=== PATIENT | male | born 1950 | race Caucasian/White ===

== ENCOUNTER 2019-08-02 13:00 | Outpatient (RCR) | payer MEDICARE, OTHER, SELFPAY | END 2019-08-02 23:00 | disposition home or self-care (01) | LOC: SPT 13:00 | PROVIDERS: Family Provider Family Medicine; PCP Family Medicine; Referring Provider Orthopaedic Surgery; Visit Provider Orthopaedic Surgery | DX: M25.512 Pain in left shoulder (principal); M54.10 Radiculopathy, site unspecified | CPT/HCPCS: 97163 ==

== ENCOUNTER 2019-08-16 13:32 | Emergency (ER) | payer MEDICARE, OTHER, SELFPAY ==
[2019-08-16 14:00] VITALS: BP 106/69; PULSE 71; RESP 16; TEMP 36.6; O2SAT 95; BMI 25.8
--- NOTE | 2019-08-16 14:06 | PC.NURSE ---
Patient seated in waiting room at this time. Will continue to monitor.
[2019-08-16 14:51] VITALS: BP 125/78; PULSE 58; RESP 16; TEMP 36.3; O2SAT 97
[2019-08-16] MEDS: fluorescein 1 mg Strip EYE-RIGHT (15:17)
[2019-08-16] MEDS: tetracaine 0.5% Op Soln 4 mL Btl 1 DROP EYE-RIGHT (15:17)
--- NOTE | 2019-08-16 15:26 | ED_ITS ---
HPI - General Adult General: Chief complaint: General Medical Stated complaint: bleach in nose? Time Seen by Provider: 08/16/19 14:50 Source: patient Mode of arrival: ambulatory Limitations: no limitations History of Present Illness: HPI narrative: 69-year-old male patient presents the emergency department saying about 3 to 4 hours ago he was using nasal solution and accidentally grabbed a bleach solution bottle. Patient states it did not smell of bleach but he was certain that there was bleach in the bottle. Patient said he irrigated his right nare as well as his right eye. Patient complains of burning and irritation to his right nares as well as his right eye. Patient denies any visual disturbances. Patient states he is not have any changes in his vision. Patient denies any fever. Patient denies any shortness of breath or difficulty breathing. Patient denies any other complaints at this Onset (ago): hour(s) (3-4) Location: eyes Severity: mild Quality: burning Pain Consistency: other (improving) Relieving factors: other (rrigation) Exacerbating factors: none Associated symptoms: Reports no associated symptoms; Deny chest pain, confusion, diaphoresis, dyspnea, fevers/chills, headache(s), malaise, nausea, rash, palpitations, short of breath or vomiting Treatments prior to arrival: other (irrigation) Review of Systems Const: Denies: fever, chills, body aches, change in appetite, change in weight, fatigue, malaise, night sweats or diaphoresis Eyes: Reports: eye discomfort and eye redness; Denies: change in vision, blurry vision, blind spots, photophobia, eye discharge, yellow eyes, dry eyes, increased production of tears, floaters, seeing flashes or decreased night vision ENMT: Reports: other (right nare pain); Denies: throat pain, uvular edema, enlarged tonsils, painful swallowing, h oarseness, mouth pain, swelling of lips/tongue, oral sores/lesions, bleeding gums, dental pain, dry mouth, bad breath, ear pain, ear discharge, Change in hearing, tinnitus, disequilibrium, nasal discharge, nasal congestion, nasal obstruction, nose bleeds, post nasal drip or facial/sinus pain Card: Denies: chest pain, palpitations or irregular heart rhythm Resp: Denies: shortness of breath, productive cough, wheezing, stridor, pain on inspiration or coughing up blood GI: Denies: abdominal pain, nausea or vomiting Skin/Breast: Denies: rash or itching Neuro: Denies: headache, numbness in extremities, weakness in extremities, changes in sensation, lack of coordination, difficulty walking, frequent falls, dizziness, vertigo, confusion, behavioral changes, slurred speech, difficulty communicating thoughts, seizure-like activity, involuntary movements or restless legs Psych: Denies: suicidal ideation or homicidal ideation All/Imm: Denies: hives, throat swelling, tongue swelling, facial swelling, acute wheezing, itchy eyes, seasonal allergies or food intolerance PFSH ED PFSH: Statuses (acute, chronic, etc) shown below reflect problem list status as previously entered and may not be historically accurate Social History Smoking and tobacco status: never smoked Alcohol intake: never Physical Exam Const: COMMON NORMALS: no apparent distress GENERAL APPEARANCE: cooperative ORIENTATION/CONSCIOUSNESS: Yes awake, Yes oriented to person, Yes oriented to place and Yes oriented to time HENMT: COMMON NORMALS: normocephalic, head/scalp atraumatic, hearing grossly normal bilaterally, external ears normal, EAC's normal, TM's normal bilaterally, external nose normal, nasal mucous membranes and turbinates normal, moist oral mucous membranes and dentition normal HEAD & SCALP: normal to inspection, normocephalic and atraumatic FACE & SINUS: normal facial exam and normal transillumination of sinuses NOSE: external nose normal, nares normal, nasal mucous membranes and turbinates normal, no nasal discharge, external nose abnormal and mucous membranes and turbinates abnormal EXTERNAL EAR: Yes external ears normal EXTERNAL AUDITORY CANAL: EAC's normal TYMPANIC MEMBRANE: TM's normal bilaterally MOUTH: oral and palatal mucosa normal, lip normal and tongue normal THROAT: posterior oropharynx normal, tonsils normal and uvula midline; no uvular edema Eye: COMMON NORMALS: PERRL, EOMs intact bilaterally and conjunctivae normal (Right side is erythematous) GENERAL EYE: normal light reflex VISUAL ACUITY: Yes acuity normal ALIGNMENT: Yes alignment normal EYELID: eyelids normal CONJUNCTIVA: Yes conjunctivae normal (Right side is erythematous) SCLERA: sclerae normal (Right side is erythematous) PUPIL: Yes PERRL DIRECT OPHTHALMOSCOPY: Yes normal light reflex SLIT LAMP EXAM: Yes slit lamp exam performed with fluorescein Neuro: SENSORIUM/ORIENTATION: Yes oriented to person, Yes oriented to place and Yes oriented to time Course ED course: Patient is well-appearing nontoxic and in no acute distress I did call poison control to discuss this patient's case. They advised to irrigate eye and nare that this typically just causes irritation. Patient's eye was irrigated and tested with vita paper pH was normal to the right eye. I did examine patient's eye after applying 1 drop of tetracaine with fluorescein under Carmona lamp there is no evidence of corneal ulceration or abrasion. I will go ahead and start patient on erythromycin eye ointment at this time given patient's exposure to a chemical irritation. Patient does not have any visual changes or disturbances. Patient does not have any signs of respiratory difficulty or distress. Advised patient if he is not better by a.m. to follow- up with his eye doctor. Patient states he will agree to that plan. Return precautions advised home care instructions reviewed patient is medically clear and appropriate for discharge Vital Signs: Vital signs: Vital Signs Temperature 98.3 F 08/16/19 15:41 Pulse Rate 70 08/16/19 15:41 Respiratory Rate 14 08/16/19 15:41 Blood Pressure 131/70 08/16/19 15:41 Pulse Oximetry 96 08/16/19 15:41 Discharge Plan Discharge Patient Disposition: Home, Self-Care Clinical Impression: Corneal irritation of right eye Condition: Stable Prescriptions: New erythromycin 5 mg/gram (0.5 %) ointment 1 applic ophthalmic (eye) BID 7 Days Qty: 1 RF: 0 No Action oxycodone-acetaminophen 10-325 mg tablet 1 tab PO Q8H PRNRF: 0 naproxen [Naprosyn] 500 mg tablet 500 mg PO BID RF: 0 allopurinol 100 mg tablet 100 mg PO BID RF: 0 metoprolol succinate 100 mg capsule,sprinkle,ER 24hr 100 mg PO Q24H RF: 0 amlodipine 5 mg tablet 5 mg PO BID RF: 0 montelukast [Singulair] 10 mg tablet 10 mg PO ONCE RF: 0 doxazosin 2 mg tablet 2 mg PO ONCE RF: 0 fluticasone propionate 50 mcg/actuation spray,suspension 1 spray INTRANASAL BID RF: 0 hydralazine 25 mg tablet 25 mg PO TID RF: 0 furosemide 20 mg tablet 10 mg PO QAM RF: 0 aspirin 81 mg tablet,delayed release (DR/EC) 81 mg PO ONCE RF: 0 diphenhydramine HCl [Allergy (diphenhydramine)] 25 mg capsule 25 mg PO TID PRNRF: 0 magnesium citrate 125 mg capsule 125 mg PO ONCE RF: 0 montelukast 10 mg tablet 10 mg PO ONCE Qty: 30 RF: 2 Discharge Orders: Discharge Order (Routine); Ordered 08/16/19 Ordered By: Maribell Ta Referrals: Malini Garcia DO [Primary Care Provider] - (Please see as needed) Discharge Diet: Usual diet Discharge Activity: Resume usual activity Patient Instructions: Corneal Abrasion (ED) Activity Restrictions/Additional Instructions: Please see your eye doctor if no improvement by am. Please take meds as directed Please use saline nasal rinse for right nare. 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
[2019-08-16 15:41] VITALS: BP 131/70; PULSE 70; RESP 14; TEMP 36.8; O2SAT 96
== END 2019-08-16 15:42 | disposition home or self-care (01) ==
LOC: ER 16:47
PROVIDERS: Emergency Provider Registered Nurse; Family Provider Family Medicine; PCP Family Medicine
DX: Z77.098 Contact with and (suspected) exposure to other hazardous, chiefly nonmedicinal, chemicals (principal)
CPT/HCPCS: 99281; 99283

== ENCOUNTER → 2019-11-15 13:58 | Outpatient (BNVA) | payer MEDICARE, OTHER, SELFPAY | PROVIDERS: Family Provider Family Medicine; PCP Family Medicine; Visit Provider Family Medicine | DX: M10.071 Idiopathic gout, right ankle and foot (principal); M10.9 Gout, unspecified | CPT/HCPCS: 84550 ==

== ENCOUNTER 2020-07-03 08:58 | Outpatient (CLI) | payer MEDICARE, SELFPAY ==
[2020-07-03 09:59] VITALS: BMI 27.2
--- NOTE | 2020-07-03 10:01 | ECG_ITS ---
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 Interpretive Statements NAME OF STUDY: LEXISCAN SESTAMIBI STRESS TEST INDICATION: Chest Pain PROCEDURE: At the baseline, the blood pressure was 134/81 mmHg, oxygen saturation of 96% with a heart rate of 52 bpm. The electrocardiogram showed sinus bradycardia, normal axis with nonspecific ST changes. The Lexiscan was infused over a period of 20 seconds. A total of 0.4 milligrams of Lexiscan was infused. The stress phase was continued for a total of 5 minutes. Heart rate at the end of the stress phase was 67 bpm with a blood pressure of 128/62 mmHg. The EKG at the peak infusion revealed sinus rhythm with no significant ST-T wave changes. Patient developed intraprocedural shortness of breath that resolved by discharge. The study was terminated due to protocol completion. Sestamibi was injected 20 seconds after the Lexiscan infusion. Blood pressure at the end of the recovery phase was 135/62 mmHg, oxygen saturation 96% with a heart rate of 64 beats per minute. CONCLUSION: 1. Normal EKG response to LexiScan infusion. 2. No LexiScan induced chest pain or cardiac arrhythmia. 3. Normal blood pressure and heart rate response. 4. Sestamibi/sestamibi perfusion scan pending; see separate report. Electronically Signed On 07-04-2020 17:39:21 GOLD ASSAYER by Vonda Espinoza M.D. [id number]
--- NOTE | 2020-07-03 10:01 | NMCV_ITS ---
NM roscoe perf SPECT r/s* [id number] Domingo Bloom Age: 70 Gender: M : 1950 Exam Date: 07/03/2020 10:57 Ordering Phys: Vonda Espinoza MD ([email or web address]) Technologist: NILTON Green Exam Location: [facility] Indications: CHEST PAIN STRESS TEST Please see separate stress test report in [facility] for full findings IMAGE PROTOCOL Rest/Stress 1 Lexiscan Day Radiopharmaceutical Dose (mCi) Administration Site Administered by Rest: Tc-99m 10.9 IV NILTON Diaz Sestamibi Stress:Tc-99m 32.5 IV Sestamibi Rest: 03-Jul-2020 60 Discovery 630 Stress: 03-Jul-2020 30 Discovery 630 0.4mg Lexiscan. Images obtained in supine and prone position. SPECT RESULTS Technical Quality: Excellent Raw Data Analysis: Normal Image Corrections: No attenuation or motion correction applied Summed Stress Score: 0 Summed Rest Score: 0 Summed Difference Score: 0 PERFUSION FINDINGS SPECT images demonstrate homogeneous tracer distribution throughout the myocardium on rest and stress images. FUNCTIONAL RESULTS (calculated via Gated SPECT) Stress Image LV EF (%): 74 Stress EDV (mL):103 TID: 1.23 Stress ESV (mL):27 FUNCTIONAL FINDINGS: The left ventricle is normal in size. Transient Ischemia Dilatation of 1.2. There is normal left ventricular systolic function. The left ventricular ejection fraction is normal with a value of 74%. No regional wall motion abnormality. There is normal left ventricular wall thickening. Normal end-diastolic end-systolic volumes. IMPRESSIONS 1. Normal myocardial perfusion imaging. 2. Overall left ventricular systolic function is normal without regional wall motion abnormalities. 3. There is normal left ventricular wall thickening. 4. Transient ischemic dilation index mildly increased at 1.23. This may represent subendocardial ischemia or hypertensive response. Clinical correlation is advised. 5. No prior similar studies to compare. Vonda Espinoza MD (Electronically Signed) Final Date: 04 July 2020 18:06 S
--- NOTE | 2020-07-03 11:35 | SUR.PREOP ---
Patient reports no pain or discomfort prior to the start of the procedure.
[2020-07-03] MEDS: regadenoson 0.4 Mg/5 ml Syringe IVP (11:37)
[2020-07-03 11:48] VITALS: BP 135/62; PULSE 64
== END 2020-07-03 08:59 | disposition home or self-care (01) ==
PROVIDERS: PCP Family Medicine; Visit Provider Internal Medicine Cardiovascular Disease
DX: R07.9 Chest pain, unspecified (principal)
CPT/HCPCS: 78452; 93017; A9500; J2785

== ENCOUNTER → 2020-11-13 15:04 | Outpatient (BNVA) | payer OTHER, MEDICARE, SELFPAY | PROVIDERS: PCP Family Medicine; Visit Provider Family Medicine | DX: Z79.891 Long term (current) use of opiate analgesic (principal); M54.5 Low back pain; G89.29 Other chronic pain | CPT/HCPCS: 80307 ==

== ENCOUNTER 2020-12-18 14:24 | Outpatient (CLI) | payer MEDICARE, SELFPAY ==
--- NOTE | 2020-12-18 15:00 | USCV_ITS ---
Domingo Bloom Age: 70 Gender: M : 1950 Exam Date: 12/18/2020 14:49 Ordering Phys: Attila Hand MD Technologist: Magaly Mark [place] [facility] [place]: [place] TO RT LOWER LEG HISTORY: Kicked in lower rt leg by horse. PROCEDURES: Venous duplex imaging was performed in only the right lower extremity. The following venous structures were evaluated: common femoral vein, profunda vein, proximal portion of the greater saphenous vein, superficial femoral vein, and the popliteal vein. In addition, the posterior tibial and peroneal trunk were evaluated. Serial compression, augmentation maneuvers, and spectral Doppler flow evaluation were performed. And area of interest Rt lat lower leg FINDINGS: Normal 2-D Doppler and augmentation and compressibility throughout the lower extremity venous structures. Additional imaging through the proximal calf veins also reveals no thrombus. Limited evaluation of the greater saphenous vein is patent with no thrombus. Superificial fluid at site of trauma. CONCLUSIONS No DVT right lower extremity. Dr. Evi Fuentes DO (Electronically Signed) Final Date: 19 December 2020 09:43 S
--- NOTE | 2020-12-18 15:45 | XRR_ITS ---
PROCEDURE INFORMATION: Exam: XR Right Ankle Exam date and time: 12/18/2020 2:55 PM Age: 70 years old Clinical indication: Injury or trauma; Other: Horse kicked leg; Blunt trauma; Knee; Right; Injury date: A month ago; Additional info: S80.11xa - contusion of right lower leg, initial encounter TECHNIQUE: Imaging protocol: XR Right ankle. Views: 3 or more views. Total images: 3 COMPARISON: US SoftTissue/Extrem Lmt [id number] 02/17/2019 4:01 PM FINDINGS: Bones/joints: No visible acute osseous abnormality, fracture, subluxation, or dislocation. No radiographically visible joint effusion. Small heel spur. Achilles enthesophyte. 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 Soft tissues: Soft tissues without evidence of edema, swelling, contusion, emphysema, or radiopaque foreign body. XR/XR ankle RT min 3V* [id number] IMPRESSION: Nonacute.
== END 2020-12-18 14:25 | disposition home or self-care (01) ==
LOC: RAD 14:29
PROVIDERS: PCP Family Medicine; Visit Provider Orthopaedic Surgery
DX: S80.11XA Contusion of right lower leg, initial encounter (principal); X58.XXXA Exposure to other specified factors, initial encounter; M79.661 Pain in right lower leg
CPT/HCPCS: 73610; 93971

== ENCOUNTER 2021-03-05 12:00 | Outpatient (CLI) | payer MEDICARE, SELFPAY | END 2021-03-05 12:01 | disposition home or self-care (01) | LOC: SLEEP 03-06 10:21 | PROVIDERS: PCP Family Medicine; Visit Provider Internal Medicine Cardiovascular Disease | DX: G47.10 Hypersomnia, unspecified (principal) | CPT/HCPCS: G0399 ==

== ENCOUNTER → 2021-03-08 10:18 | Outpatient (BNVA) | payer MEDICARE, SELFPAY | PROVIDERS: PCP Family Medicine; Visit Provider Nurse Practitioner Family | DX: Z20.822 Contact with and (suspected) exposure to COVID-19 (principal); J06.9 Acute upper respiratory infection, unspecified | CPT/HCPCS: 87426 ==

== ENCOUNTER → 2021-03-09 08:44 | Outpatient (BNVA) | payer MEDICARE, SELFPAY | PROVIDERS: PCP Family Medicine; Visit Provider Family Medicine | DX: I10 Essential (primary) hypertension (principal) | CPT/HCPCS: 80053; 80061; 82043; 85025 ==

== ENCOUNTER → 2021-05-01 16:03 | Outpatient (BNVA) | payer BC, SELFPAY | PROVIDERS: PCP Family Medicine; Visit Provider Family Medicine | DX: R35.1 Nocturia (principal) | CPT/HCPCS: 84153 ==

== ENCOUNTER → 2021-09-20 15:34 | Outpatient (BNVA) | payer MEDICARE, SELFPAY | PROVIDERS: PCP Family Medicine; Visit Provider Nurse Practitioner Family | DX: I49.1 Atrial premature depolarization (principal) | CPT/HCPCS: 80048; 83880; 85025; 99214 ==

== ENCOUNTER → 2021-10-08 15:32 | Outpatient (BNVA) | payer MEDICARE, SELFPAY | PROVIDERS: PCP Family Medicine; Visit Provider Internal Medicine Cardiovascular Disease | DX: R09.89 Other specified symptoms and signs involving the circulatory and respiratory systems (principal); I10 Essential (primary) hypertension; M79.89 Other specified soft tissue disorders | CPT/HCPCS: 99214 ==

== ENCOUNTER 2022-03-08 10:18 | Observation (INO) | payer MEDICARE, SELFPAY ==
[2022-03-08] VITALS (7 sets, daily range): BP systolic 108–169; BP diastolic 57–87; PULSE 68–82; RESP 17–19; TEMP 36.6–37.4; O2SAT 96–98; BMI 26.5
--- NOTE | 2022-03-08 10:33 | XR_ITS ---
WS: [id number] KUB, AP view, 03/08/2022 Clinical Data: constipation post op Comparison: KUB, 03/22/2014. Findings: No abnormal intraabdominal masses are seen. There is no dilatated small bowel or evidence of obstruct ion. There is a 0.5 cm calcification adjacent to the left lateral renal border. There are 2 calcifica tions which may overlie the right kidney. There is a large amount of fecal material throughout the colon. There are clips in the right upper qu adrant from a cholecystectomy. There is osteoarthritis of the lower thoracic and all the lumbar verte bral bodies. XR/XR KUB [id number] Impression: 1. Possible bilateral renal calcifications. 2. Large amount of fecal material throughout the colon.
--- NOTE | 2022-03-08 11:12 | W.ED.ABDPA2 ---
HPI - Abdominal Pain General: Chief Complaint: Abdominal Pain Stated Complaint: post kidney op, constipation Time Seen by Provider: 03/08/22 11:00 Source: patient Mode of arrival: ambulatory Limitations: no limitations History of Present Illness: Patient is in the emergency department this morning because he is feels distended and constipated. He states he has not a bowel movement for several days he does not think he has had 1 postoperatively. He apparently had urologic procedure at [facility] on Friday which included general anesthesia and a stone retrieval via urethra. He states he went home that day and has eaten and drank some not the usual amount but he has been doing both. He states he is not had a bowel movement and feels distended and has tried [id number] enema as well as a suppository. He does take opiates on a regular basis. He states he is taken Percocet for years for his chronic back and neck pain is never had this issue. He denies any fevers or chills or vomiting. He states he has had no other change in his usual constitutional symptoms. Quality: cramping and fullness Context: recent surgery/procedure Associated Symptoms: Reports constipation; Denies chills, dysuria, fever(s), nausea and vomiting Review of Systems Const: Denies: fever(s) or chills Eyes: Denies: change in vision ENMT: Denies: throat pain, odynophagia, nasal congestion or nasal obstruction Card: Denies: chest pain, palpitations or irregular heart rhythm Resp: Denies: dyspnea, productive cough or non-productive cough GI: Reports: abdominal pain and constipation; Denies: nausea or vomiting : Denies: flank pain, difficulty urinating, dysuria or urinary frequency Musc: Reports: neck pain and back pain; Denies: joint pain or joint swelling Skin/Breast: Denies: rash Neuro: Denies: headache(s), numbness in extremities or weakness in extremities Amari/Lymph: Denies: easy bruising or easy bleeding [facility] ED PFSH: Medical History BPH (benign prostatic hyperplasia) Chronic low back pain CKD (chronic kidney disease) stage 3, GFR 30-59 ml/min Hypertension Surgical History H/O hernia repair History of back surgery History of cholecystectomy History of neck surgery Family History Mother CAD (coronary artery disease) Dementia Stroke Other Hypertension Denies family history of Diabetes Clotting disorder Chronic kidney disease (CKD) Suicide Anesthesia complication Bleeding disorder Lung disease Cancer Social History Smoking and tobacco status: never smoked Alcohol intake: never Physical Exam Narrative: EXAM NARRATIVE: Patient is alert and awake and cooperative. Speech is fluent and goal-directed. Const: COMMON NORMALS: no acute distress, average body habitus and patient oriented x3 GENERAL APPEARANCE: cooperative HENMT: COMMON NORMALS: normocephalic, Normal nasal mucous membranes and turbinates present and moist oral mucous membranes HEAD & SCALP: normocephalic NOSE: Normal nasal mucous membranes and turbinates present Eye: COMMON NORMALS: Equal, round and reactive pupils present, EOMs intact bilaterally and conjunctivae normal CONJUNCTIVA: Yes conjunctivae normal PUPIL: Yes Equal, round and reactive pupils present Neck/C-Spine: COMMON NORMALS: full ROM and no lymphadenopathy Chest: COMMONS NORMALS: normal inspection of the chest Resp: COMMON NORMALS: normal respiratory effort, No retractions, No use of accessory muscles and clear to auscultation bilaterally AUSCULTATION: clear to auscultation bilaterally Cardio: COMMON NORMALS: regular rate, regular rhythm, No murmurs present (Cardio) and Peripheral pulses 2+ throughout RATE: regular rate RHYTHM: regular rhythm PERIPHERAL PULSES: Peripheral pulses 2+ throughout GI: PALPATION: No Firmness to palpation present (GI), Yes Tenderness to palpation present (GI), Yes Guarding due to palpation present (GI), No Rigid due to palpation, No Palpable mass present and No Rebound tenderness present RECTAL EXAM: Yes normal sphincter tone, Yes fecal impaction and Yes tenderness OTHER: Rectal examination revealed considerable amount of formed stool in the rectal vault. : COMMON NORMALS: Yes no CVA tenderness BLADDER/KIDNEY EXAM: Yes no CVA tenderness Back/Pelvis: COMMON NORMALS: no CVA tenderness, thoracic and lumbar spine normal to inspection and no thoracic nor lumbar tenderness Extremity: COMMON NORMALS: normal to inspection, full ROM, capillary refill normal, no calf tenderness and no pedal edema Neuro: COMMON NORMALS: patient oriented x3, moves all extremities, no focal motor deficits and no sensory deficits noted Psych: COMMON NORMALS: mental status grossly normal Skin: COMMON NORMALS: no rashes or lesions noted and turgor normal GENERAL SKIN EXAM: no rashes or lesions noted and turgor normal Course Reevaluation(s): Reevaluation #1: Approximately 10 mL of 2% lidocaine jelly was introduced via Urojet into the rectal vault. This was allowed to sit in that location for approximately 15 minutes and then digital disimpaction was undertaken. Moderate amount of soft brown stool was removed from the rectal vault. We will plan on allowing the patient to going to the toilet and sit for period and see if it stimulates a bowel movement. Time: 11:45 Reevaluation #2: Patient is still unable to have a bowel movement and complaining of back and abdominal pain predominantly cramping for the latter. He was given a dose of release to her as well but still has not had any improvement. Time: 14:11 Reevaluation #3: Despite our measures in the emergency department the patient still is very uncomfortable and has not had a bowel movement of any significance. We have exhausted our ability to provide additional treatment in the emergency department and we will go ahead and place him in observation for additional enemas and and other treatments as indicated. Time: 16:38 Consultations: Consultation #1: Discussed with hospitalist who agreed to take over care and observation. Time: 16:38 Vital Signs: Vital signs: Vital Signs Temperature 98 F 03/08/22 10:24 Pulse Rate 71 03/08/22 12:57 Respiratory Rate 18 03/08/22 10:24 Blood Pressure 119/58 03/08/22 12:57 Pulse Oximetry 97 03/08/22 12:57 Oxygen Delivery Me thod 03/08/22 12:57 MDM - Abdominal Pain Medical Decision Making Patient who had recent surgery with general anesthesia and is a longstanding opiate user presents to our emergency department with prolonged obstipation and lack of bowel movement over the past several days. Despite numerous attempts in the emergency department to include antiopiate medication, fluid hydration, manual disimpaction we were unsuccessful in relieving the patient's symptoms so he will be placed in observation for continued treatment. Imaging studies in the emergency department revealed no evidence of obstruction or other worrisome condition. Lab Data : 03/08/22 14:30 03/08/22 14:30 Labs/Radiology: Radiology Impressions KUB X-Ray 03/08/22 10:33 Impression: 1. Possible bilateral renal calcifications. 2. Large amount of fecal material throughout the colon. Abdomen/Pelvis CT 03/08/22 14:14 IMPRESSION: 1. Prominent rectosigmoid constipation with diffuse wall thickening and surrounding induration of the distal colon can be seen with distal infectious or inflammatory colitis. 2. Sigmoid diverticulosis. No evidence of acute diverticulitis. 3. No drainable fluid collections. 4. Fat-containing LEFT inguinal hernia. 5. Small esophageal hiatal hiatal hernia. 6. No hydronephrosis in either kidney. Laboratory Results WBC 8.7 10^3/uL (4.0-10.0) 03/08/22 14:30 RBC 3.73 10^6/uL (4.1-5.3) L 03/08/22 14:30 Hgb 11.8 g/dL (11.7-16.6) 03/08/22 14:30 Hct 35.2 % (42.0-52.0) L 03/08/22 14:30 MCV 94.4 fl (80-94) H 03/08/22 14:30 MCH 31.6 pg (28.0-34.0) 03/08/22 14:30 MCHC 33.5 g/dL (30.0-36.0) 03/08/22 14:30 RDW 12.4 % (12.1-15.1) 03/08/22 14:30 Plt Count 161 10^3/cmm (130-400) 03/08/22 14:30 MPV 10.1 fL (7.4-10.4) 03/08/22 14:30 Neut % (Auto) 83.8 % 03/08/22 14:30 Lymph % (Auto) 8.2 % 03/08/22 14:30 [place] % (Auto) 7.4 % 03/08/22 14:30 Eos % (Auto) 0.1 % 03/08/22 14:30 Baso % (Auto) 0.3 % 03/08/22 14:30 Neut # (Auto) 7.25 10^3/uL (1.8-7.7) 03/08/22 14:30 Lymph # (Auto) 0.7 10^3/uL (0.8-4.8) L 03/08/22 14:30 [place] # (Auto) 0.6 10^3/uL (0.2-0.9) 03/08/22 14:30 Eos # (Auto) 0.0 10^3/uL (0.0-0.8) 03/08/22 14:30 Baso # (Auto) 0.0 10^3/uL (0.0-0.1) 03/08/22 14:30 Nucleated RBC % (auto) 0 % 03/08/22 14:30 Nucleated RBCs # 0.0 /100WBC 03/08/22 14:30 Sodium 138 mmol/L (136-145) 03/08/22 14:30 Potassium 3.8 mmol/L (3.5-5.1) 03/08/22 14:30 Chloride 99 mmol/L (98-107) 03/08/22 14:30 Carbon Dioxide 23 mmol/L (22-29) 03/08/22 14:30 Anion Gap 19.8 (5-19) H 03/08/22 14:30 BUN 20 mg/dL (8-23) 03/08/22 14:30 Creatinine 1.1 mg/dL (0.7-1.2) 03/08/22 14:30 GFR Calculation Not Reportable 03/08/22 14:30 Glucose 145 mg/dL (65-115) H 03/08/22 14:30 Calculated Osmolality 291 mOsm/kg (285-295) 03/08/22 14:30 Calcium 8.8 mg/dL (8.5-10.5) 03/08/22 14:30 Total Bilirubin 0.9 mg/dL (0.15-1.2) 03/08/22 14:30 AST 17 U/L (0-40) 03/08/22 14:30 ALT 15 U/L (0-41) 03/08/22 14:30 Alkaline Phosphatase 73 U/L (40-130) 03/08/22 14:30 Total Protein 6.2 g/dL (6.6-8.7) L 03/08/22 14:30 Albumin 4.4 g/dL (3.5-5.2) 03/08/22 14:30 Globulin 1.8 g/dL (1.3-4.6) 03/08/22 14:30 Discharge Plan Discharge Patient Disposition: Placed in Observation Clinical Impression: Impacted stool in intestine Condition: Stable Prescriptions: No Action aspirin 81 mg tablet,delayed release (DR/EC) 81 mg PO ONCE diphenhydramine HCl [Allergy (diphenhydramine)] 25 mg capsule 25 mg PO TID PRN magnesium citrate 125 mg capsule 125 mg PO DAILY PRN (Reason: constipation) triamcinolone acetonide 0.1 % cream 1 applic topical BID Qty: 30 0RF amlodipine 5 mg tablet 5 mg PO BID Label Comments: pt states that he is taking 2.5 tabs qhs potassium chloride 8 mEq capsule, extended release 8 meq PO DAILY 30 Days Qty: 30 5RF oxycodone-acetaminophen 10-325 mg tablet 1 tab PO Q8H PRN (Reason: pain) 30 Days Qty: 75 0RF Rx Instructions: Do not fill until 02/01/2022 oxycodone-acetaminophen 10-325 mg tablet 1 tab PO Q8H PRN (Reason: pain) 30 Days Qty: 75 0RF Rx Instructions: Do not fill until 03/02/2022 oxycodone-acetaminophen 10-325 mg tablet 1 tab PO Q8H PRN (Reason: pain) 30 Days Qty: 75 0RF Rx Instructions: Do not fill until 04/01/2022 allopurinol 300 mg tablet 300 mg PO DAILY Qty: 90 0RF sildenafil (pulm.hypertension) 20 mg tablet See Rx Instructions PO .COMPLEX Qty: 30 0RF Rx Instructions: 1-5 PO TABS ONE HOUR PRIOR TO SEXUAL ACTIVITY - TAKE ON AN EMPTY STOMACH fluticasone propionate 50 mcg/actuation spray,suspension 1 spray INTRANASAL BID Qty: 54.6 3RF (DME) cpap and supplies See Rx Instructions .Route .MEDSUPPLY Qty: 1 0RF Rx Instructions: As directed montelukast 10 mg tablet See Rx Instructions .ROUTE .COMPLEX Qty: 90 1RF Dose Instruction: TAKE 1 TABLET BY MOUTH EVERY DAY Rx Instructions: TAKE 1 TABLET BY MOUTH EVERY DAY doxazosin 4 mg tablet 4 mg PO BID Qty: 180 3RF Rx Instructions: 4 mg by mouth once a day; tamsulosin 0.4 mg capsule 0.4 mg PO DAILY 90 Days Qty: 90 3RF metoprolol tartrate 100 mg tablet See Rx Instructions .ROUTE .COMPLEX Qty: 180 0RF Dose Instruction: TAKE 1 TABLET BY MOUTH TWICE DAILY Rx Instructions: TAKE 1 TABLET BY MOUTH TWICE DAILY hydralazine 50 mg tablet 50 mg PO TID Qty: 270 3RF chlorthalidone 25 mg tablet 25 mg PO DAILY Qty: 90 3RF furosemide 20 mg tablet 20 mg PO DAILY Qty: 90 3RF Rx Instructions: Dose was increased to 1 full tab daily per Aleta Ochoa Referrals: Malini Garcia DO [Primary Care Provider] - Coding Level of Care Code ED [employer] Consultant for Chg Fwd Exam Comprehensive
[2022-03-08] MEDS: lidocaine 2% Urojet 20 mL TOPICAL (12:05)
[2022-03-08] MEDS: methylnaltrexone 12 /0.6 mL INJ 12 MG SUBCUT (13:33)
--- NOTE | 2022-03-08 14:14 | CT_ITS ---
WS: [id number] CT ABDOMEN PELVIS TECHNIQUE: Noncontrast CT of the abdomen and pelvis with coronal and sagittal reformatted images. CLINICAL INFORMATION: increased pain and unable to deficate COMPARISON: CT October 15, 2018 DLP: 736.[address] scans at [facility] use at least one of these dose optimization techniques: automated e xposure control; mA and/or kV adjustment per patient size (includes targeted exams where dose is matc hed to clinical indication); or iterative reconstruction. FINDINGS: Noncontrast examination. Prominent rectosigmoid constipation with distention of the rectum. Mild wall thickening and indurat ion about the rectosigmoid can be seen with infectious or inflammatory distal colitis. No drainable f luid collections. Sigmoid diverticulosis. No evidence of acute diverticulitis. Normal noncontrast liver. Small hepatic cysts. Small esophageal hiatal hernia. Adrenal glands are nor mal. Normal noncontrast pancreas. Cholecystectomy clips. Bilateral renal cysts. Normal caliber abdomi nal aorta. Mild aortic calcification. Hypertrophic changes lumbar spine. CT/CT abdomen pelvis wo con [id number] IMPRESSION: 1. Prominent rectosigmoid constipation with diffuse wall thickening and surrou nding induration of the distal colon can be seen with distal infectious or infl ammatory colitis. 2. Sigmoid diverticulosis. No evidence of acute diverticulitis. 3. No drainable fluid collections. 4. Fat-containing LEFT inguinal hernia. 5. Small esophageal hiatal hiatal hernia. 6. No hydronephrosis in either kidney.
[2022-03-08 14:42] LABS: Basophils % 0.3 %; Eosinophils % 0.1 %; Hematocrit 35.2 % (42.0-52.0); Hemoglobin 11.8 g/dL (11.7-16.6); Lymphocytes # 0.7 10^3/uL (0.8-4.8); Lymphocytes % 8.2 %; Mean Corpuscular HGB Conc 33.5 g/dL (30.0-36.0); Mean Corpuscular Hemoglobin 31.6 pg (28.0-34.0); Mean Corpuscular Volume 94.4 fl (80-94); Mean Platelet Volume 10.1 fL (7.4-10.4); Monocytes # 0.6 10^3/uL (0.2-0.9); Monocytes % 7.4 %; Neutrophils # 7.25 10^3/uL (1.8-7.7); Neutrophils % 83.8 %; Nucleated Red Blood Cells % 0 %; Platelet Count 161 10^3/cmm (130-400); Red Blood Count 3.73 10^6/uL (4.1-5.3); Red Cell Distribution Width 12.4 % (12.1-15.1); White Blood Count 8.7 10^3/uL (4.0-10.0)
[2022-03-08] MEDS: sodium chloride 0.9% 1,000 ML 999 ML IV (14:49)
[2022-03-08 15:02] LABS: Alanine Aminotransferase 15 U/L (0-41); Albumin Level 4.4 g/dL (3.5-5.2); Alkaline Phosphatase 73 U/L (40-130); Anion Gap 19.8 (5-19); Aspartate Amino Transferase 17 U/L (0-40); Blood Urea Nitrogen 20 mg/dL (8-23); Calcium 8.8 mg/dL (8.5-10.5); Carbon Dioxide 23 mmol/L (22-29); Chloride 99 mmol/L (98-107); Globulin 1.8 g/dL (1.3-4.6); Glucose 145 mg/dL (65-115); Osmolality Calculated 291 mOsm/kg (285-295); Potassium 3.8 mmol/L (3.5-5.1); Sodium 138 mmol/L (136-145); Total Bilirubin 0.9 mg/dL (0.15-1.2); Total Protein 6.2 g/dL (6.6-8.7)
[2022-03-08] MEDS: ketorolac 30 mg/mL INJ 15 MG IVP (16:25)
--- NOTE | 2022-03-08 16:41 | P.HP_ITS ---
Providers/Chief Complaint Primary Care Provider: Malini Garcia DO Chief Complaint: post kidney op, constipation History of Present Illness Domingo Bloom is a 72 year old male with past medical history of hypertension, GERD, BPH who was recently at [facility] for nephrolithiasis and underwent cage procedure presented the ER today because of abdominal pain. Patient states he usually takes Percocet 3 times a day for back pain but for last 1 week has been taking more pain medications because of nephrolithiasis. He has not had a bowel movement for over 2 to 3 days. Denies any nausea, vomiting, dizziness. In the ER CT scan was done which was consistent with severe constipation. He was manually disimpacted after which he had very small bowel movement. Denies any similar complaints in the past. Hemoglobin 11.8, sodium 138, chloride 99, creatinine 1.1. Review of Systems General: Reports: 10 or more systems reviewed and unremarkable except in HPI and below Const: Denies: fever(s), chills, body aches, change in appetite, change in weight, malaise, night sweats, diaphoresis, change in sleep pattern, daytime sleepiness or snoring Eyes: Denies: change in vision, blurry vision, photophobia, eye discomfort or eye discharge ENMT: Denies: throat pain, enlarged tonsils, hoarseness, mouth pain, oral sores, dry mouth, tinnitus, nasal congestion or post nasal drip Card: Denies: chest pain, palpitations, irregular heart rhythm, edema, swelling of feet/ankles, lightheadedness, syncope, pre-syncope, dyspnea on e xertion, orthopnea, leg pain with exertion or acrocyanosis Resp: Denies: dyspnea, productive cough, non-productive cough, wheezing, stridor, pain on inspiration, change in phlegm color, hemoptysis or chest congestion GI: Denies: abdominal pain, nausea, vomiting, hematemesis, coffee ground emesis, dysphagia, heartburn, diarrhea, constipation, bloating, GI cramping, change in bowel habits, pain on defecation, hematochezia or melena : Denies: flank pain, difficulty urinating, dysuria, urinary frequency, ur inary urgency, urinary hesitancy, urinary dribbling, difficulty starting urination, change in urine stream, nocturia or hematuria Musc: Denies: neck pain, back pain, extremity pain, joint pain, joint swelling, joint redness, joint stiffness or limited range of motion Neuro: Denies: headache(s), numbness in extremities, weakness in extremities, sensory changes, lack of coordination, difficulty walking, frequent falls, dizziness, vertigo, confusion, Slurred speech present, difficulty communicating thoughts or seizure-like activity Psych: Denies: anxiety, depression, mood swings, panic attacks, hopelessness or irritability Endo: Denies: polyuria, polydipsia, tired all the time, cold intolerance, excessive sweating, flushing or heat intolerance Amari/Lymph: Denies: easy bruising or easy bleeding All/Imm: Denies: tongue swelling, facial swelling or acute wheezing Medications/Allergies Home Medications Medication Instructions Recorded Confirmed Last Taken Type aspirin 81 mg tablet,delayed 81 mg PO ONCE 07/20/19 01/31/22 Unknown History release diphenhydramine HCl 25 mg capsule 25 mg PO TID PRN 07/20/19 01/31/22 Unknown History (Allergy (diphenhydramine)) allopurinol 300 mg tablet 300 mg PO DAILY #90 tabs 02/23/20 01/31/22 Unknown Rx magnesium citrate 125 mg capsule 125 mg PO DAILY PRN constipation 01/03/21 01/31/22 Unknown History fluticasone propionate 50 1 spray intranasal BID #54.6 mL 01/29/21 01/31/22 Unknown Rx mcg/actuation nasal spray,suspension cpap and supplies #1 ea 06/15/21 01/31/22 Unknown Rx doxazosin 4 mg tablet 4 mg PO BID #180 tabs 07/17/21 01/31/22 Unknown Rx tamsulosin 0.4 mg capsule 0.4 mg PO DAILY 90 days #90 caps 07/20/21 01/31/22 Unknown Rx hydralazine 50 mg tablet 50 mg PO TID #270 tabs 09/28/21 01/31/22 Unknown Rx amlodipine 5 mg tablet 5 mg PO BID 10/08/21 01/31/22 Unknown History potassium chloride 8 mEq 8 meq PO DAILY 30 days #30 caps 10/08/21 01/31/22 Unk nown Rx capsule,extended release chlorthalidone 25 mg tablet 25 mg PO DAILY #90 tabs 10/31/21 01/31/22 Unknown Rx oxycodone-acetaminophen 10 mg-325 1 tab PO Q8H PRN pain 30 days #75 01/31/22 01/31/22 Unknown Rx mg tablet tabs oxycodone-acetaminophen 10 mg-325 1 tab PO Q8H PRN pain 30 days #75 01/31/22 01/31/22 Unknown Rx mg tablet tabs oxycodone-acetaminophen 10 mg-325 1 tab PO Q8H PRN pain 30 days #75 01/31/22 01/31/22 Unknown Rx mg tablet tabs furosemide 20 mg tablet 20 mg PO DAILY #90 tabs 03/07/22 Unknown Rx calcitriol 0.25 mcg capsule 0.25 mcg PO EVERY OTHER DAY 03/08/22 03/08/22 03/07/22 History metoprolol tartrate 100 mg tablet 100 mg PO BID 03/08/22 03/08/22 03/07/22 History montelukast 10 mg tablet 10 mg PO DAILY 03/08/22 03/08/22 03/07/22 History Allergies Allergy/AdvReac Type Severity Reaction Status Date / Time hydrocodone [From Vicodin] Allergy itch Verified 03/08/22 17:04 PFSH Acute PFSH: Medical History (Updated 03/08/22 @ 17:16 by Jose Angel Escamilla MD) BPH (benign prostatic hyperplasia) Carotid bruit Chronic low back pain CKD (chronic kidney disease) stage 3, GFR 30-59 ml/min Hypertension FERNANDA (obstructive sleep apnea) Surgical History H/O hernia repair History of back surgery History of cholecystectomy History of neck surgery Family History Mother CAD (coronary artery disease) Dementia Stroke Other Hypertension Denies family history of Diabetes Clotting disorder Chronic kidney disease (CKD) Suicide Anesthesia complication Bleeding disorder Lung disease Cancer Social History Smoking and tobacco status: never smoked Alcohol intake: never Vitals/I&O/Wt Last Vital Signs Temp 98 F 03/08/22 10:24 Pulse 71 03/08/22 12:57 Resp 18 03/08/22 10:24 BP 119/58 03/08/22 12:57 Pulse Ox 97 08/26/22 12:57 O2 Del Method 03/08/22 12:57 03/08/22 03/08/22 03/08/22 06:59 14:59 22:59 Intake Total 1000 / 1000 Balance 1000 / 1000 Weight last 48 hrs Weight 83.915 kg Physical Exam Narrative: EXAM NARRATIVE: General: No acute distress, AO x3, HEENT: PERRLA, pupils bilaterally equal and reactive Chest: Normal vesicular breath sounds, bilateral equal air entry CVS: S1-S2 regular, no murmurs, no tachycardia, no gallops, no rubs Abdomen: Soft, nontender, no organomegaly, bowel sounds present, morbidly obese Neuro: No focal deficits, no facial deformity, AO x3, power 5/5 in all limbs Data : 03/08/22 14:30 03/08/22 14:30 A&P Assessment and plan (1) Impacted stool in intestine: Most likely secondary to excessive pain medications which she has been taking for nephrolithiasis. Manual disimpaction in the ER. Enema, aggressive bowel regimen with milk of mag, senna Colace. Normal saline 75 cc/h. Already received Relistor subcu 12 mg in the ER Out of bed to chair. Early ambulation. Status: Acute (2) Constipation due to pain medication: As seen on CT scan. No signs of infection or start colitis. 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 Will avoid extra dose. Status: Acute (4) Hypertension: Status: Acute Qualifiers: Hypertension type: essential hypertension Qualified Code(s): I10 - Essential (primary) hypertension Plan Continue other home medication including allopurinol, amlodipine, aspirin, doxazosin, hydralazine, metoprolol. Hold off on diuretics including chlorthalidone and Lasix for now. High-fiber diet Famotidine for VT prophylaxis SCDs for DVT prophylaxis, low chance VTE. 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
[2022-03-08 17:50] LABS: Folate Level 12.9 ng/mL (4.5-32.2)
[2022-03-08] MEDS: doxazosin 4 mg Tablet PO (17:56)
[2022-03-08] MEDS: amlodipine 5 mg Tablet PO (17:56)
[2022-03-08] MEDS: sennosides 8.6 mg Tablet 17.2 MG PO ×2 (17:57→22:32)
[2022-03-08] MEDS: aspirin 81 mg EC Tablet PO (17:57)
[2022-03-08] MEDS: oxyCODONE-APAP 10-325 mg Tablet 1 TAB PO (17:57)
[2022-03-08] MEDS: magnesium hydroxide 30 mL UDC PO (17:57)
[2022-03-08] MEDS: fluticasone nasal spray 16gm Btl 1 SPRAY INTRANASAL (17:58)
[2022-03-08 18:14] LABS: Iron 65 ug/dL (59-158); Thyroid Stimulating Hormone 1.56 uIU/mL (0.27-4.20); Vitamin B12 409 pg/mL (232-1245)
[2022-03-08] MEDS: sodium chloride 0.9% 1,000 ML 75 ML IV (18:25)
[2022-03-08 18:32] LABS: Percent Saturation 21.2 % (20-50); Total Iron Binding Capacity 306 mcg/dl; Unsaturated Iron Binding 241 ug/dL (112-347)
[2022-03-08] MEDS: hyDRALAzine 50 mg Tablet PO (22:33)
[2022-03-08] MEDS: famotidine 20 mg/2 mL INJ IVP (22:33)
[2022-03-08] MEDS: metoprolol tartrate 50 mg Tablet 100 MG PO (22:33)
[2022-03-09] VITALS: BP 123/56; PULSE 66; RESP 17; TEMP 37.5; O2SAT 95
[2022-03-09 04:00] VITALS: BP 138/61; PULSE 67; RESP 19; TEMP 37.6; O2SAT 97
[2022-03-09 04:06] LABS: Add Urine Microscopic? NO; Charge for UA Resulting for Rev
[2022-03-09 04:10] LABS: Bilirubin Urine Neg (Negative); Blood Urine Neg (Negative); Glucose Urine UA Norm (Normal); Ketones Urine Negative (Negative); Leukocyte Esterase Urine Negative (Negative); Nitrate Urine Negative (Negative); Protein Urine Neg (Negative); Urine Appearance Clear (CLEAR); Urine Color Yellow (Yellow); Urobilinogen Urine Norm (Negative); pH Urine 6 (5-7)
[2022-03-09 05:43] VITALS: RESP 18
[2022-03-09] MEDS: oxyCODONE-APAP 10-325 mg Tablet 1 TAB PO (05:43)
[2022-03-09 06:07] LABS: Basophils % 0.6 %; Eosinophils # 0.1 10^3/uL (0.0-0.8); Eosinophils % 1.8 %; Hematocrit 32.4 % (42.0-52.0); Hemoglobin 10.8 g/dL (11.7-16.6); Lymphocytes # 0.8 10^3/uL (0.8-4.8); Lymphocytes % 15.1 %; Mean Corpuscular HGB Conc 33.3 g/dL (30.0-36.0); Mean Corpuscular Hemoglobin 31.5 pg (28.0-34.0); Mean Corpuscular Volume 94.5 fl (80-94); Mean Platelet Volume 10.9 fL (7.4-10.4); Monocytes # 0.6 10^3/uL (0.2-0.9); Monocytes % 12.3 %; Neutrophils # 3.45 10^3/uL (1.8-7.7); Neutrophils % 69.4 %; Nucleated Red Blood Cells % 0 %; Platelet Count 145 10^3/cmm (130-400); Red Blood Count 3.43 10^6/uL (4.1-5.3); Red Cell Distribution Width 12.7 % (12.1-15.1)
[2022-03-09 06:49] LABS: Estmated Average Glucose 114; Hemoglobin A1C 5.6 % (4.0-6.0)
[2022-03-09 07:48] VITALS: BP 131/68; PULSE 61; RESP 16; TEMP 36.7; O2SAT 96
[2022-03-09] MEDS: tamsulosin 0.4 mg Capsule PO (08:09)
[2022-03-09] MEDS: allopurinol 300 mg Tablet PO (08:09)
[2022-03-09] MEDS: montelukast sodium 10 mg Tablet PO (08:09)
[2022-03-09] MEDS: famotidine 20 mg/2 mL INJ IVP (08:09)
[2022-03-09] MEDS: aspirin 81 mg EC Tablet PO (08:09)
[2022-03-09] MEDS: hyDRALAzine 50 mg Tablet PO (08:09)
[2022-03-09] MEDS: doxazosin 4 mg Tablet PO (08:09)
[2022-03-09] MEDS: amlodipine 5 mg Tablet PO (08:10)
[2022-03-09] MEDS: metoprolol tartrate 50 mg Tablet 100 MG PO (08:10)
[2022-03-09 09:32] LABS: Alanine Aminotransferase 13 U/L (0-41); Alkaline Phosphatase 67 U/L (40-130); Anion Gap 14.1 (5-19); Aspartate Amino Transferase 14 U/L (0-40); Blood Urea Nitrogen 16 mg/dL (8-23); Calcium 8.7 mg/dL (8.5-10.5); Carbon Dioxide 26 mmol/L (22-29); Chloride 105 mmol/L (98-107); Chol HDL Ratio 2.96 mg/dL (1.0-5.00); Cholesterol 154 mg/dL (0-200); Globulin 1.8 g/dL (1.3-4.6); Glucose 128 mg/dL (65-115); HDL Cholesterol 52 mg/dL (60-100); LDL Cholesterol Calculated 91 mg/dL (50-129); Magnesium 2.1 mg/dL (1.7-2.3); Osmolality Calculated 295 mOsm/kg (285-295); Phosphorus 2.9 mg/dL (2.5-4.5); Potassium 4.1 mmol/L (3.5-5.1); Sodium 141 mmol/L (136-145); Total Bilirubin 0.8 mg/dL (0.15-1.2); Total Protein 5.8 g/dL (6.6-8.7); Triglycerides 55 mg/dL (0-150); VLDL Cholestrol Calculation 11 mg/dL (0-30)
[2022-03-09 11:34] VITALS: BP 101/50; PULSE 52; RESP 18; TEMP 36.6; O2SAT 97
--- NOTE | 2022-03-09 11:57 | PM.DCS ---
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 for nephrolithiasis and underwent cage procedure presented the ER today because of abdominal pain.? Patient states he usually takes Percocet 3 times a day for back pain but for last 1 week has been taking more pain medications because of nephrolithiasis.? He has not had a bowel movement for over 2 to 3 days.? Denies any nausea, vomiting, dizziness.? In the ER CT scan was done which was consistent with severe constipation.? He was manually disimpacted after which he had very small bowel movement. Denies any similar complaints in the past.? Hemoglobin 11.8, sodium 138, chloride 99, creatinine 1.1. Patient admitted to the hospital further evaluation and management of severe constipation. CT scan admission did not show any stercoral colitis. He was treated with aggressive bowel regimen and enema. He received 1 dose of Restoril. Patient responded well and has had good 2-3 bowel movements. On admission he was found to be dehydrated for which he was started on IV fluids. Diuretics were withheld. He is been discharged in hemodynamically stable condition on admission he was found to be slightly dehydrated on aggressive bowel regimen. He is not to take chlorthalidone anymore. Dose of amlodipine has been decreased to 10 mg daily. Physical Exam Narrative: EXAM NARRATIVE: General: No acute distress, AO x3, HEENT: PERRLA, pupils bilaterally equal and reactive Chest: Normal vesicular breath sounds, bilateral equal air entry CVS: S1-S2 regular, no murmurs, no tachycardia, no gallops, no rubs Abdomen: Soft, nontender, no organomegaly, bowel sounds present, morbidly obese Neuro: No focal deficits, no facial deformity, AO x3, power 5/5 in all limbs Discharge Data Studies Completed and Pending Completed Studies During Hospitalization Category Date Time Status CT abdomen pelvis wo con [id number] Stat Cat Scan 03/08/22 14:14 Completed XR KUB [id number] Stat Exams 03/08/22 10:33 Completed Radiology Impressions KUB X-Ray 03/08/22 10:33 Impression: 1. Possible bilateral renal calcifications. 2. Large amount of fecal material throughout the colon. Abdomen/Pelvis CT 03/08/22 14:14 IMPRESSION: 1. Prominent rectosigmoid constipation with diffuse wall thickening and surrounding induration of the distal colon can be seen with distal infectious or inflammatory colitis. 2. Sigmoid diverticulosis. No evidence of acute diverticulitis. 3. No drainable fluid collections. 4. Fat-containing LEFT inguinal hernia. 5. Small esophageal hiatal hiatal hernia. 6. No hydronephrosis in either kidney. Laboratory Results WBC 5.0 10^3/uL (4.0-10.0) 03/09/22 05:18 RBC 3.43 10^6/uL (4.1-5.3) L 03/09/22 05:18 Hgb 10.8 g/dL (11.7-16.6) L 03/09/22 05:18 Hct 32.4 % (42.0-52.0) L 03/09/22 05:18 MCV 94.5 fl (80-94) H 03/09/22 05:18 MCH 31.5 pg (28.0-34.0) 03/09/22 05:18 MCHC 33.3 g/dL (30.0-36.0) 03/09/22 05:18 RDW 12.7 % (12.1-15.1) 03/09/22 05:18 Plt Count 145 10^3/cmm (130-400) 03/09/22 05:18 MPV 10.9 fL (7.4-10.4) H 03/09/22 05:18 Neut % (Auto) 69.4 % 03/09/22 05:18 Lymph % (Auto) 15.1 % 03/09/22 05:18 [place] % (Auto) 12.3 % 03/09/22 05:18 Eos % (Auto) 1.8 % 03/09/22 05:18 Baso % (Auto) 0.6 % 03/09/22 05:18 Neut # (Auto) 3.45 10^3/uL (1.8-7.7) 03/09/22 05:18 Lymph # (Auto) 0.8 10^3/uL (0.8-4.8) 03/09/22 05:18 [place] # (Auto) 0.6 10^3/uL (0.2-0.9) 03/09/22 05:18 Eos # (Auto) 0.1 10^3/uL (0.0-0.8) 03/09/22 05:18 Baso # (Auto) 0.0 10^3/uL (0.0-0.1) 03/09/22 05:18 Nucleated RBC % (auto) 0 % 03/09/22 05:18 Nucleated RBCs # 0.0 /100WBC 03/09/22 05:18 Sodium 141 mmol/L (136-145) 03/09/22 08:48 Potassium 4.1 mmol/L (3.5-5.1) 03/09/22 08:48 Chloride 105 mmol/L (98-107) 03/09/22 08:48 Carbon Dioxide 26 mmol/L (22-29) 03/09/22 08:48 Anion Gap 14.1 (5-19) 03/09/22 08:48 BUN 16 mg/dL (8-23) 03/09/22 08:48 Creatinine 1.2 mg/dL (0.7-1.2) 03/09/22 08:48 GFR Calculation Not Reportable 03/09/22 08:48 Glucose 128 mg/dL (65-115) H 03/09/22 08:48 Estimat Average Glucose 114 03/08/22 14:30 Hemoglobin A1c 5.6 % (4.0-6.0) 03/08/22 14:30 Calculated Osmolality 295 mOsm/kg (285-295) 03/09/22 08:48 Calcium 8.7 mg/dL (8.5-10.5) 03/09/22 08:48 Phosphorus 2.9 mg/dL (2.5-4.5) 03/09/22 08:48 Magnesium 2.1 mg/dL (1.7-2.3) 03/09/22 08:48 Iron 65 ug/dL (59-158) 03/08/22 14:30 TIBC 306 mcg/dl 03/08/22 14:30 % Saturation 21.2 % (20-50) 03/08/22 14:30 Unsat Iron Binding 241 ug/dL (112-347) 03/08/22 14:30 Total Bilirubin 0.8 mg/dL (0.15-1.2) 03/09/22 08:48 AST 14 U/L (0-40) 03/09/22 08:48 ALT 13 U/L (0-41) 03/09/22 08:48 Alkaline Phosphatase 67 U/L (40-130) 03/09/22 08:48 Total Protein 5.8 g/dL (6.6-8.7) L 03/09/22 08:48 Albumin 4.0 g/dL (3.5-5.2) 03/09/22 08:48 Globulin 1.8 g/dL (1.3-4.6) 03/09/22 08:48 Triglycerides 55 mg/dL (0-150) 03/09/22 08:48 Cholesterol 154 mg/dL (0-200) 03/09/22 08:48 LDL Cholesterol, Calc 91 mg/dL (50-129) 03/09/22 08:48 Total VLDL Cholesterol 11 mg/dL (0-30) 03/09/22 08:48 HDL Cholesterol 52 mg/dL (60-100) L 03/09/22 08:48 Cholesterol/HDL Ratio 2.96 mg/dL (1.0-5.00) 03/09/22 08:48 Vitamin B12 409 pg/mL (232-1245) 03/08/22 14:30 Folate 12.9 ng/mL (4.5-32.2) 03/08/22 14:30 TSH 1.56 uIU/mL (0.27-4.20) 03/08/22 14:30 Urine Color Yellow (Yellow) 03/09/22 04:00 Urine Appearance Clear (CLEAR) 03/09/22 04:00 Urine pH 6 (5-7) 03/09/22 04:00 Ur Specific [place] 1.010 (1.005-1.030) 03/09/22 04:00 Urine Protein Neg (Negative) 03/09/22 04:00 Urine Glucose (UA) Norm (Normal) 03/09/22 04:00 Urine Ketones Negative (Negative) 03/09/22 04:00 Urine Blood Neg (Negative) 03/09/22 04:00 Urine Nitrate Negative (Negative) 03/09/22 04:00 Urine Bilirubin Neg (Negative) 03/09/22 04:00 Urine Urobilinogen Norm mg/dL (Negative) 03/09/22 04:00 Ur Leukocyte Esterase Negative (Negative) 03/09/22 04:00 Vitals Last Vital Signs Temp 97.8 F 03/09/22 11:34 Pulse 52 L 03/09/22 11:34 Resp 18 03/09/22 11:34 BP 101/50 03/09/22 11:34 Pulse Ox 97 03/09/22 11:34 O2 Del Method 03/09/22 11:34 Discharge Plan Discharge Patient Disposition: Home Condition: Stable Prescriptions: New magnesium hydroxide [Milk of Magnesia] 400 mg/5 mL Suspension 15 ml PO BEDTIME PRN (Reason: Constipation) Qty: 300 0RF sennosides [Senna Lax] 8.6 mg Tablet 17.2 mg PO BEDTIME Qty: 30 0RF Continued aspirin 81 mg tablet,delayed release (DR/EC) 81 mg PO ONCE diphenhydramine HCl [Allergy (diphenhydramine)] 25 mg capsule 25 mg PO TID PRN (Reason: Allergic Symptoms) magnesium citrate 125 mg capsule 125 mg PO DAILY PRN (Reason: constipation) potassium chloride 8 mEq capsule, extended release 8 meq PO DAILY 30 Days Qty: 30 5RF oxycodone-acetaminophen 10-325 mg tablet 1 tab PO Q8H PRN (Reason: pain) 30 Days Qty: 75 0RF Rx Instructions: Do not fill until 02/01/2022 oxycodone-acetaminophen 10-325 mg tablet 1 tab PO Q8H PRN (Reason: pain) 30 Days Qty: 75 0RF Rx Instructions: Do not fill until 03/02/2022 oxycodone-acetaminophen 10-325 mg tablet 1 tab PO Q8H PRN (Reason: pain) 30 Days Qty: 75 0RF Rx Instructions: Do not fill until 04/01/2022 allopurinol 300 mg tablet 300 mg PO DAILY Qty: 90 0RF fluticasone propionate 50 mcg/actuation spray,suspension 1 spray INTRANASAL BID Qty: 54.6 3RF (DME) cpap and supplies See Rx Instructions .Route .MEDSUPPLY Qty: 1 0RF Rx Instructions: As directed doxazosin 4 mg tablet 4 mg PO BID Qty: 180 3RF tamsulosin 0.4 mg capsule 0.4 mg PO DAILY 90 Days Qty: 90 3RF hydralazine 50 mg tablet 50 mg PO TID Qty: 270 3RF furosemide 20 mg tablet 20 mg PO DAILY Qty: 90 3RF calcitriol 0.25 mcg capsule 0.25 mcg PO EVERY OTHER DAY metoprolol tartrate 100 mg tablet 100 mg PO BID montelukast 10 mg tablet 10 mg PO DAILY Changed amlodipine 5 mg tablet 10 mg PO DAILY Qty: 30 0RF Label Comments: pt states that he is taking 2.5 tabs qhs Discontinued chlorthalidone 25 mg tablet 25 mg PO DAILY Qty: 90 3RF Discharge Orders: Discharge Order (Routine); Ordered 03/09/22 Ordered By: Jose Angel Escamilla Referrals: Malini Garcia DO [Primary Care Provider] - 2 weeks Discharge Diet: Regular Discharge Activity: Resume usual activity and Increase activity as tolerated Patient Instructions: Opioid Safety Activity Restrictions/Additional Instructions: Do not take chlorthalidone anymore. Amlodipine dose has been decreased to 10 mg daily. Please continue to take senna every day. Discharge Attestations Time Spent in Discharge Care*: greater than 30 min Specific Discharge Activities: educating patient, educating and/or supporting family/caregiver, discussing with pcp/other providers, discussing with disability case manager/social workers/dc planners, documenting/other paperwork and evaluating patient/reviewing data Status at Discharge: Cognitive status at discharge: cognitively intact, Behavioral status at discharge: cooperative, Functional status at discharge: independent ambulation, Overall status at discharge: patient is back to baseline Quality Metrics Clinical Quality Measures [ No reported AMI, CVA or VTE this stay] Coding Level of Care Code Acute g DC note Diagnoses Impacted stool in intestine K56.41 Constipation due to pain medication 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
== END 2022-03-09 13:16 | disposition home or self-care (01) ==
LOC: ER 16:40 → MEDSURG 16:56
PROVIDERS: Admitting Provider Student in an Organized Health Care Education/Training Program; Emergency Provider Emergency Medicine; PCP Family Medicine; Visit Provider Student in an Organized Health Care Education/Training Program
DX: K56.41 Fecal impaction (principal); K59.03 Drug induced constipation; Z79.891 Long term (current) use of opiate analgesic; N40.0 Benign prostatic hyperplasia without lower urinary tract symptoms; Z79.82 Long term (current) use of aspirin; G47.33 Obstructive sleep apnea (adult) (pediatric); I12.9 Hypertensive chronic kidney disease with stage 1 through stage 4 chronic kidney disease, or unspecified chronic kidney disease; N18.9 Chronic kidney disease, unspecified; G89.29 Other chronic pain; M54.9 Dorsalgia, unspecified
CPT/HCPCS: 36415; 74018; 74176; 80053; 80061; 81003; 82607; 82746; 83036; 83540; 83550; 83735; 84100; 84443; 85025; 96361; 96372; 96374; 99285; G0378; J1885; J2212; J3490; J7030

== ENCOUNTER 2022-05-14 06:00 | Outpatient (RCR) | payer OTHER, SELFPAY | END 2022-06-12 23:59 | disposition home or self-care (01) | LOC: SPT 06:00 | PROVIDERS: PCP Family Medicine; Visit Provider Family Medicine | DX: M54.41 Lumbago with sciatica, right side (principal); M54.42 Lumbago with sciatica, left side; G89.29 Other chronic pain | CPT/HCPCS: 97161 ==

== ENCOUNTER 2022-06-13 06:00 | Outpatient (RCR) | payer OTHER, SELFPAY | END 2022-07-13 23:59 | disposition home or self-care (01) | LOC: SPT 06:00 | PROVIDERS: PCP Family Medicine; Visit Provider Family Medicine | DX: M54.41 Lumbago with sciatica, right side (principal); M54.42 Lumbago with sciatica, left side; G89.29 Other chronic pain | CPT/HCPCS: 97110; 97530 ==

== ENCOUNTER → 2022-08-09 15:03 | Outpatient (BNVA) | payer OTHER, SELFPAY | PROVIDERS: PCP Family Medicine; Visit Provider Family Medicine | DX: Z79.891 Long term (current) use of opiate analgesic (principal) | CPT/HCPCS: 80307 ==

== ENCOUNTER 2022-08-16 08:00 | Outpatient (CLI) | payer OTHER, SELFPAY ==
--- NOTE | 2022-08-16 | CTR_ITS ---
PROCEDURE INFORMATION: Exam: CT Lumbar Spine Without Contrast Exam date and time: 08/16/2022 8:31 AM Age: 72 years old Clinical indication: Pain; Lumbago with sciatica; Bilateral; Prior surgery; Additional info: Lumbar radiculopathy. History--work related injury in 2000. Surgery on lumbar spine, chronic pain since, new onset of numbness in lower extremities TECHNIQUE: Imaging protocol: Computed tomography of the lumbar spine without contrast. Radiation optimization: All CT scans at this facility use at least one of these dose optimization techniques: automated exposure control; mA and/or kV adjustment per patient size (includes targeted exams where dose is matched to clinical indication); or iterative reconstruction. Other protocol: This patient has received [address] and 0 known cardiac nuclear medicine studies in the 12 months prior to the current study. COMPARISON: CR XR lumbar spine min 4V [id number] 10/11/2020 8:42 AM RADIATION DOSE METRICS: Total DLP (mGy-cm): 783.2 FINDINGS: Bones/joints: Negative for fracture or dislocation. L1-L2: No significant disc protrusion. No severe spinal canal stenosis. No significant neural foraminal narrowing. L2-L3: No significant disc protrusion. No severe spinal canal stenosis. No significant neural foraminal narrowing. L3-L4: L3-L4 broad-based disc bulge with [id number] spinal canal and bilateral foraminal narrowing. L4-L5: L4-L5 broad-based disc bulge with moderate spinal canal and bilateral foraminal narrowing. L5-S1: L5/S1 broad-based disc bulge with moderate to severe spinal canal and bilateral foraminal narrowing. Kidneys and ureters: Right kidney nonobstructing calyceal stone. Left kidney cysts somewhat visualized. Soft tissues: Unremarkable. CT/CT lumbar spine wo con* [id number] IMPRESSION: 1. L3-L4 broad-based disc bulge with [id number]-[id number] spinal canal and bilateral foraminal narrowing. 2. L4-L5 broad-based disc bulge with moderate spinal canal and bilateral foraminal narrowing. 3. L5/S1 broad-based disc bulge with moderate to severe spinal canal and bilateral foraminal narrowing. 4. Right kidney nonobstructing calyceal stone. 5. Left kidney cysts somewhat visualized. COMMENTS: Consistent with the [employer]'s Incidental Findings Committee white paper (J Am Silvino Radiol 2018): Any incidental renal lesion less than 1 cm or classified as too small to characterize, or any incidental cystic renal lesion characterized as simple-appearing, is likely benign. No follow-up imaging is recommended for these lesions per consensus recommendations based on imaging criteria.
== END 2022-08-16 08:01 | disposition home or self-care (01) ==
PROVIDERS: PCP Family Medicine; Visit Provider Surgery
DX: M54.16 Radiculopathy, lumbar region (principal); M47.816 Spondylosis without myelopathy or radiculopathy, lumbar region; M51.36 Other intervertebral disc degeneration, lumbar region; M48.061 Spinal stenosis, lumbar region without neurogenic claudication; Q61.02 Congenital multiple renal cysts; N20.0 Calculus of kidney
CPT/HCPCS: 72131

== ENCOUNTER 2022-11-20 09:51 | Outpatient (CLI) | payer OTHER, SELFPAY ==
--- NOTE | 2022-11-20 10:01 | XR_ITS ---
WS: [id number] Cervical spine, 3 views, 11/20/2022 Clinical Data: neck pain with radicular symptoms Comparison: Cervical spine, 08/28/2016. Findings: No compression fractures are seen. The anterior cervical disc fusion C5-C7 with accompanyin g artificial disc material has not changed.. There is no prevertebral soft tissue swelling. The odont oid is unremarkable. The lung apices are normal. There is minimal calcification in the region of the left carotid bifurcation. XR/XR cervical spine 3V* [id number] Impression: Stable anterior cervical disc fusion C5-C7.
== END 2022-11-20 09:52 | disposition home or self-care (01) ==
PROVIDERS: PCP Family Medicine; Visit Provider Family Medicine
DX: M54.12 Radiculopathy, cervical region (principal); Z98.2 Presence of cerebrospinal fluid drainage device
CPT/HCPCS: 72040

== ENCOUNTER → 2023-02-10 14:07 | Outpatient (BNVA) | payer MEDICARE, SELFPAY | PROVIDERS: PCP Family Medicine; Visit Provider Emergency Medicine | DX: R39.9 Unspecified symptoms and signs involving the genitourinary system (principal) | CPT/HCPCS: 81000 ==

== ENCOUNTER 2023-04-17 14:34 | Emergency (ER) | payer MEDICARE, SELFPAY ==
[2023-04-17 14:36] VITALS: BP 96/54; PULSE 58; RESP 15; TEMP 36.7; O2SAT 97
--- NOTE | 2023-04-17 14:55 | XR_ITS ---
WS: [id number] EXAMINATION: XR chest 1V portable [id number] REASON FOR EXAM: hypotension COMPARISON: 12/19/2020 ORDER DATE: 04/17/2023 2:58 PM TECHNIQUE: A single, portable frontal chest x-ray was obtained. X-RAY FINDINGS: The lungs are clear. Pleural spaces are clear. No pleural effusions or pneumothorax. Cardiomediastinal silhouette is normal. No evidence for pulmonary edema. Soft tissue and osseous structures are unremarkable. Previous lower cervical spine fusion. IMPRESSION: Unremarkable frontal portable chest x-ray.
--- NOTE | 2023-04-17 15:00 | ECG_ITS ---
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 Measurements Intervals Arthur Rate: 51 P: 32 SD: 142 QRS: 64 QRSD: 112 T: 63 QT: 437 QTc: 403 Interpretive Statements SINUS BRADYCARDIA MODERATE INTRAVENTRICULAR CONDUCTION DELAY [110+ ms QRS DURATION] Compared to ECG 08/04/2018 11:06:20 Intraventricular conduction delay now present Electronically Signed On 04-17-2023 15:56:27 CDT by Terry Alejandra M.D. [email or web address]
--- NOTE | 2023-04-17 15:04 | W.ED.GENADLT ---
Documented by User: CRISTOFER Doe 04/17/23 16:40 HPI - General Adult General: Chief complaint: Dizziness Stated complaint: low bp Time Seen by Provider: 04/17/23 14:55 Source: patient Mode of arrival: ambulatory Limitations: no limitations History of Present Illness: Patient is a very nice 73-year-old male who presents to ED today with a complaint of low blood pressure. Patient states he got up this morning and felt groggy headed and states he overall just did not feel well. He states he was able to complete his morning routine but later felt a little lightheaded so sat down and took his blood pressure and states at its lowest it was 80s over 40s. Patient states he does not have a history of low blood pressure. He states he did take all of his morning medications this morning. Upon arrival to the emergency department blood pressure was 96/54 and at the time of my initial examination it was 120s/50s. Patient states 2 days ago he underwent lithotripsy by urology in [place]. Patient states he is still urinating blood. He denies flank pain. He does have some pain to the left side of his abdomen but states this is fairly chronic as he has an abdominal wall mesh that is supposed to be taken out at some point. Patient has not been running fevers. Onset (ago): hour(s) Severity: mild Relieving factors: none Exacerbating factors: none Associated symptoms: Reports chest pain (none currently); Deny dyspnea, headache(s), nausea, rash, palpitations, syncope or vomiting Treatments prior to arrival: none Review of Systems Const: Denies: fever(s) or chills Eyes: Denies: change in vision or blurry vision Card: Reports: chest pain (none currently); Denies: palpitations, irregular heart rhythm, edema, swelling of feet/ankles, lightheadedness, syncope, pre-syncope, dyspnea on exertion, orthopnea, leg pain with exertion or acrocyanosis Resp: Denies: dyspnea, productive cough or pain on inspiration GI: Reports: abdominal pain (states he has a chronically painful abdominal mesh); Denies: nausea, vomiting, heartburn, diarrhea, hematochezia or melena : Reports: hematuria (recently had lithotripsy); Denies: flank pain, difficulty urinating, dysuria, urinary frequency, urinary urgency or urinary hesitancy Musc: Denies: neck pain, back pain, extremity pain, extremity swelling or joint pain Skin/Breast: Denies: rash Neuro: Denies: headache(s), numbness in extremities, weakness in extremities, sensory changes or dizziness PFSH ED PFSH: Medical History BPH (benign prostatic hyperplasia) Carotid bruit Chronic low back pain CKD (chronic kidney disease) stage 3, GFR 30-59 ml/min Hypertension retirement (current) use of opiate analgesic FERNANDA (obstructive sleep apnea) Surgical History H/O hernia repair History of back surgery History of cholecystectomy History of neck surgery Family History Mother CAD (coronary artery disease) Dementia Stroke Other Hypertension Denies family history of Diabetes Clotting disorder Chronic kidney disease (CKD) Suicide Anesthesia complication Bleeding disorder Lung disease Cancer Social History Smoking and tobacco status: never smoked Alcohol intake: never Substance/Drug Use: never Physical Exam Const: COMMON NORMALS: no acute distress, average body habitus, patient oriented x3, no limitations, healthy appearing, alert and well nourished GENERAL APPEARANCE: cooperative ORIENTATION/CONSCIOUSNESS: Yes awake, Yes oriented to person, Yes oriented to place and Yes oriented to time HENMT: COMMON NORMALS: normocephalic and atraumatic HEAD & SCALP: normal to inspection, normocephalic and atraumatic Eye: COMMON NORMALS: no scleral icterus Neck/C-Spine: COMMON NORMALS: full ROM, no lymphadenopathy, supple and no meningeal signs Chest: COMMONS NORMALS: normal inspection of the chest Resp: COMMON NORMALS: normal respiratory effort and clear to auscultation bilaterally AUSCULTATION: clear to auscultation bilaterally Cardio: COMMON NORMALS: regular rate and regular rhythm RATE: regular rate RHYTHM: regular rhythm GI: COMMON NORMALS: Normal to inspection, nondistended, normoactive bowel sounds present, Soft to palpation, No hepatosplenomegaly present and no masses INSPECTION: Yes normal to inspection AUSCULTATION: Yes normoactive bowel sounds PALPATION: Yes Soft to palpation and Yes No hepatosplenomegaly present : COMMON NORMALS: Yes no CVA tenderness BLADDER/KIDNEY EXAM: Yes no CVA tenderness Back/Pelvis: COMMON NORMALS: no CVA tenderness, thoracic and lumbar spine normal to inspection, no thoracic nor lumbar tenderness and thoraco-lumbar ROM normal Extremity: COMMON NORMALS: normal to inspection GENERAL: Yes normal exam except as noted Neuro: SHARON COMA SCALE: document GCS findings Sharon coma scale eye opening: Spontaneous Sharon coma scale verbal response: Orientated Sharon coma scale motor response: Obey commands [place] coma scale total score: 15 COMMON NORMALS: patient oriented x3, moves all extremities, no focal motor deficits, no sensory deficits noted and gait normal SENSORIUM/ORIENTATION: Yes alert, Yes oriented to person, Yes oriented to place and Yes oriented to time MENINGEAL SIGNS: Yes no meningeal signs Skin: COMMON NORMALS: no rashes or lesions noted GENERAL SKIN EXAM: no rashes or lesions noted Course Vital Signs: Vital signs: Vital Signs Temperature 98.0 F 04/17/23 14:36 Pulse Rate 54 L 04/17/23 16:52 Respiratory Rate 13 04/17/23 16:52 Blood Pressure 120/57 04/17/23 16:52 Pulse Oximetry 98 04/17/23 16:52 Oxygen Delivery Me thod Room Air 04/17/23 16:10 [facility] - General Adult Lab Data 04/17/23 15:15 04/17/23 15:15 Radiology Impressions Abdomen/Pelvis CT 04/17/23 16:41 IMPRESSION: 1. Bilateral nephrolithiasis, as above. No hydronephrosis. No obstructive uropathy. 2. Urinary bladder demonstrates 3 or 4 tiny calculi in the dependent portion. The wall of the urinary bladder is mildly thickened, which may be related to underdistention. 3. Prostate gland is mildly enlarged. 4. Diverticulosis of the colon. No evidence of acute diverticulitis. 5. Small left inguinal hernia noted, containing only fat. COMMENTS: Consistent with the [employer] [employer]'s Incidental Findings Committee white paper (J Am Silvino Radiol 2018): Any incidental renal lesion less than 1 cm or classified as too small to characterize, or any incidental cystic renal lesion characterized as simple-appearing, is likely benign. No follow-up imaging is recommended for these lesions per consensus recommendations based on imaging criteria. Laboratory Results WBC 6.99 10^3/uL (3.29-11.43) 04/17/23 15:15 RBC 3.61 10^6/uL (3.85-5.65) L 04/17/23 15:15 Hgb 11.70 g/dL (11.27-16.99) 04/17/23 15:15 Hct 34.4 % (37-53) L 04/17/23 15:15 MCV 95.3 fl (82-101) 04/17/23 15:15 MCH 32.4 pg (27-33) 04/17/23 15:15 MCHC 34.0 g/dL (30-55) 04/17/23 15:15 RDW 12.5 % (12.1-15.1) 04/17/23 15:15 Plt Count 139 10^3/cmm (157-399) L 04/17/23 15:15 MPV 10.1 fL (7.4-10.4) 04/17/23 15:15 Neut % (Auto) 75.6 % 04/17/23 15:15 Lymph % (Auto) 11.0 % 04/17/23 15:15 [place] % (Auto) 10.3 % 04/17/23 15:15 Eos % (Auto) 2.3 % 04/17/23 15:15 Baso % (Auto) 0.4 % 04/17/23 15:15 Neut # (Auto) 5.28 10^3/uL (1.8-7.7) 04/17/23 15:15 Lymph # (Auto) 0.8 10^3/uL (0.8-4.8) 04/17/23 15:15 [place] # (Auto) 0.7 10^3/uL (0.2-0.9) 04/17/23 15:15 Eos # (Auto) 0.2 10^3/uL (0.0-0.8) 04/17/23 15:15 Baso # (Auto) 0.0 10^3/uL (0.0-0.1) 04/17/23 15:15 Nucleated RBC % (auto) 0 % 04/17/23 15:15 Nucleated RBCs # 0.0 /100WBC 04/17/23 15:15 Sodium 137 mmol/L (136-145) 04/17/23 15:15 Potassium 3.8 mmol/L (3.5-5.1) 04/17/23 15:15 Chloride 101 mmol/L (98-107) 04/17/23 15:15 Carbon Dioxide 25 mmol/L (22-29) 04/17/23 15:15 Anion Gap 14.8 (5-19) 04/17/23 15:15 BUN 29 mg/dL (8-23) H 04/17/23 15:15 Creatinine 1.9 mg/dL (0.7-1.2) H 04/17/23 15:15 GFR Calculation Not Reportable 04/17/23 15:15 Glucose 130 mg/dL (65-115) H 04/17/23 15:15 Calculated Osmolality 292 mOsm/kg (285-295) 04/17/23 15:15 Lactic Acid 1.6 mmol/L (0.5-2.2) 04/17/23 15:15 Calcium 8.5 mg/dL (8.5-10.5) 04/17/23 15:15 Total Bilirubin 0.6 mg/dL (0.15-1.2) 04/17/23 15:15 AST 15 U/L (0-40) 04/17/23 15:15 ALT 12 U/L (0-41) 04/17/23 15:15 Alkaline Phosphatase 65 U/L (40-130) 04/17/23 15:15 Troponin T Baseline 20 ng/L (0-15) H 04/17/23 15:15 Troponin T 120 Minute 17.77 ng/L (0-15) H 04/17/23 17:15 Delta Troponin T -2.23 ABS# (0-10) L 04/17/23 17:15 Total Protein 5.8 g/dL (6.6-8.7) L 04/17/23 15:15 Albumin 4.1 g/dL (3.5-5.2) 04/17/23 15:15 Globulin 1.7 g/dL (1.3-4.6) 04/17/23 15:15 Urine Color Carrie (Yellow) 04/17/23 16:17 Urine Appearance Cloudy (CLEAR) A 04/17/23 16:17 Urine pH 5 (5-7) 04/17/23 16:17 Ur Specific [place] 1.020 (1.005-1.030) 04/17/23 16:17 Urine Protein 1+ (Negative) H 04/17/23 16:17 Urine Glucose (UA) Norm (Normal) 04/17/23 16:17 Urine Ketones Negative (Negative) 04/17/23 16:17 Urine Blood 3+ (Negative) H 04/17/23 16:17 Urine Nitrate Negative (Negative) 04/17/23 16:17 Urine Bilirubin Neg (Negative) 04/17/23 16:17 Urine Urobilinogen Norm mg/dL (Negative) 04/17/23 16:17 Ur Leukocyte Esterase Negative (Negative) 04/17/23 16:17 Urine RBC Too numerous to cnt /hpf (0-2) H 04/17/23 16:17 Urine WBC 15-25 /hpf (0-5) H 04/17/23 16:17 Ur Squamous Epith Cells 0-4 /hpf (0-5) H 04/17/23 16:17 Amorphous Sediment Not Reportable 04/17/23 16:17 Urine Bacteria Trace /hpf (NONE) 04/17/23 16:17 Urine Mucus 2+ /hpf 04/17/23 16:17 Discharge Plan Discharge Patient Disposition: Home Clinical Impression: Acute hypotension, Dizziness Condition: Stable Prescriptions: No Action aspirin 81 mg tablet,delayed release (DR/EC) 81 mg PO QAM diphenhydramine HCl [Allergy (diphenhydramine)] 25 mg capsule 25 mg PO TID PRN (Reason: Allergic Symptoms) oxycodone-acetaminophen 10-325 mg tablet 1 tab PO Q8H PRN (Reason: pain) 30 Days Qty: 75 0RF Rx Instructions: Do not fill until 04/01/2023 oxycodone-acetaminophen 10-325 mg tablet 1 tab PO Q8H PRN (Reason: pain) 30 Days Qty: 75 0RF Rx Instructions: Do not fill until 04/30/2023 sildenafil (pulm.hypertension) 20 mg tablet See Rx Instructions PO .COMPLEX Qty: 30 1RF Rx Instructions: 1-5 PO TABS ONE HOUR PRIOR TO SEXUAL ACTIVITY - TAKE ON AN EMPTY STOMACH olopatadine 0.2 % drops 1 drp ophthalmic (eye) DAILY PRN (Reason: itching) Qty: 2.5 0RF (DME) cpap and supplies See Rx Instructions .Route .MEDSUPPLY Qty: 1 0RF Rx Instructions: As directed tamsulosin 0.4 mg capsule 0.4 mg PO DAILY 90 Days Qty: 90 3RF doxazosin 4 mg tablet 4 mg PO BID Qty: 180 3RF calcitriol 0.25 mcg capsule 0.25 mcg PO EVERY OTHER DAY metoprolol tartrate 100 mg tablet 100 mg PO BID hydralazine 100 mg tablet 100 mg PO TID amlodipine 5 mg tablet 10 mg PO QAM Patient Comments: pt states that he is taking 2.5 tabs qhs allopurinol 300 mg tablet 300 mg PO DAILY PRN (Reason: GOUT) furosemide 20 mg tablet 20 mg PO QAM colchicine (gout) 0.6 mg tablet See Rx Instructions PO DAILY PRN (Reason: GOUT) Rx Instructions: take 1.2 mg (2 tablets) by mouth once, then 0.6 mg (1 tablet) by mouth 1 hour later fluticasone propionate 50 mcg/actuation spray,suspension 1 spray INTRANASAL BID PRN (Reason: Allergic Symptoms) montelukast 10 mg tablet 10 mg PO QAM ketoconazole 2 % shampoo See Rx Instructions .ROUTE .COMPLEX Rx Instructions: APPLY 10-15 MINUTES BEFORE SHOWER, AND ONCE YOU GET INTO THE SHOWER YOU CAN WASH THE SHAMPOO OFF. mycophenolate mofetil 500 mg tablet 1,000 mg PO BID nystatin 100,000 unit/gram powder See Rx Instructions .ROUTE .COMPLEX Rx Instructions: APPLY TO GROIN AREA NEEDED hydrocortisone 2.5 % ointment See Rx Instructions .ROUTE .COMPLEX Rx Instructions: topically ;APPLY TWICE DAILY TO FLAKY RASH ON FACE. MIX WITH KETOCONAZOLE. Discharge Orders: Discharge ED (Routine); Ordered 04/17/23 Ordered By: Cami Santana Referrals: Malini Garcia DO [Primary Care Provider] - Discharge Diet: Usual diet Discharge Activity: Increase activity as tolerated Patient Instructions: Hypotension (ED), Syncope in Older Adults (ED) Activity Restrictions/Additional Instructions: Evaluation today was able to rule out any concerns for heart issues resulting in your symptoms today. It is possible that residual effects from your recent lithotripsy caused your symptoms today as you have continued to be compliant with your blood pressure medications. These altogether could have caused acute episodes of low blood pressure resulting in dizziness and sensation of passing out. We do recommend reaching out to your primary care doctor who prescribes your blood pressure medicine as it may require changes in your blood pressure regimen. Continue to monitor your blood pressure at home multiple times throughout the day and keep a log of both your pressures and your heart rate. This can help your primary care doctor with determining whether this is an acute effect due to recent procedure or, if this is a more consistent issue requiring more definitive changes in your medication regimen. If you again develop dizziness with passing out, develop severe headache, develop slurred speech, develop chest pain, develop one-sided facial weakness/drooping or one-sided body weakness/numbness you need to be seen and reevaluated back in the emergency department. Sign Out Sign Out Data: Patient Sign Out occurred on 04/17/23 at 17:04. Patient's care was discussed, and care was transferred from to CRISTOFER Hirsch. 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 FERNANDA (obstructive sleep apnea) Surgical History H/O hernia repair History of back surgery History of cholecystectomy History of neck surgery Family History Mother CAD (coronary artery disease) Dementia Stroke Other Hypertension Denies family history of Diabetes Clotting disorder Chronic kidney disease (CKD) Suicide Anesthesia complication Bleeding disorder Lung disease Cancer Social History Smoking and tobacco status: never smoked Alcohol intake: never Substance/Drug Use: never Physical Exam Neuro: SHARON COMA SCALE: document GCS findings Sharon coma scale total score: 15 Course Vital Signs: Vital signs: Vital Signs Temperature 98.0 F 04/17/23 14:36 Pulse Rate 54 L 04/17/23 16:52 Respiratory Rate 13 04/17/23 16:52 Blood Pressure 120/57 04/17/23 16:52 Pulse Oximetry 98 04/17/23 16:52 Oxygen Delivery Me thod Room Air 04/17/23 16:10 MDM - General Adult Medical Decision Making Cami Santana PA-C: Transfer of care from Jolanta Mireles PA-C at 1700. After discussion with Jolanta, she was waiting on CT results as the rest of the patient's evaluation was unremarkable-given his recent lithotripsy status. Patient CT examination revealed no acute concerns as he is post lithotripsy. I discussed the case with Dr. Romeo who, after reviewing patient's chart, indicated he was safe for discharge. Discussed with patient that he may still be having side effects from anesthesia and pain medication from his procedure given that he does take multiple blood pressure medications. Explained that all these together can cause low blood pressure. Recommended he reach out to his primary care doctor to discuss any needs and adjustment of medication for the next few days. Also requested he have follow-up with primary. Since patient does have a blood pressure cuff at home we did request he start a log of his blood pressure readings and heart rates 3-4 times a day for his primary care to review. Patient is also encouraged to stay hydrated. He was given return precautions for chest pains, syncope, blurry read or lost vision, severe headache, facial droop, slurred speech, or one-sided body weakness. Patient verbalized understanding and agreement to treatment plan. Differential Diagnosis DDx: Dehydration, medication interaction, medication overdose, cardiac event, arrhythmia Lab Data 04/17/23 15:15 04/17/23 15:15 Radiology Impressions Abdomen/Pelvis CT 04/17/23 16:41 IMPRESSION: 1. Bilateral nephrolithiasis, as above. No hydronephrosis. No obstructive uropathy. 2. Urinary bladder demonstrates 3 or 4 tiny calculi in the dependent portion. The wall of the urinary bladder is mildly thickened, which may be related to underdistention. 3. Prostate gland is mildly enlarged. 4. Diverticulosis of the colon. No evidence of acute diverticulitis. 5. Small left inguinal hernia noted, containing only fat. COMMENTS: Consistent with the [place] [employer]'s Incidental Findings Committee white paper (J Am Silvino Radiol 2018): Any incidental renal lesion less than 1 cm or classified as too small to characterize, or any incidental cystic renal lesion characterized as simple-appearing, is likely benign. No follow-up imaging is recommended for these lesions per consensus recommendations based on imaging criteria. Laboratory Results WBC 6.99 10^3/uL (3.29-11.43) 04/17/23 15:15 RBC 3.61 10^6/uL (3.85-5.65) L 04/17/23 15:15 Hgb 11.70 g/dL (11.27-16.99) 04/17/23 15:15 Hct 34.4 % (37-53) L 04/17/23 15:15 MCV 95.3 fl (82-101) 04/17/23 15:15 MCH 32.4 pg (27-33) 04/17/23 15:15 MCHC 34.0 g/dL (30-55) 04/17/23 15:15 RDW 12.5 % (12.1-15.1) 04/17/23 15:15 Plt Count 139 10^3/cmm (157-399) L 04/17/23 15:15 MPV 10.1 fL (7.4-10.4) 04/17/23 15:15 Neut % (Auto) 75.6 % 04/17/23 15:15 Lymph % (Auto) 11.0 % 04/17/23 15:15 [place] % (Auto) 10.3 % 04/17/23 15:15 Eos % (Auto) 2.3 % 04/17/23 15:15 Baso % (Auto) 0.4 % 04/17/23 15:15 Neut # (Auto) 5.28 10^3/uL (1.8-7.7) 04/17/23 15:15 Lymph # (Auto) 0.8 10^3/uL (0.8-4.8) 04/17/23 15:15 [place] # (Auto) 0.7 10^3/uL (0.2-0.9) 04/17/23 15:15 Eos # (Auto) 0.2 10^3/uL (0.0-0.8) 04/17/23 15:15 Baso # (Auto) 0.0 10^3/uL (0.0-0.1) 04/17/23 15:15 Nucleated RBC % (auto) 0 % 04/17/23 15:15 Nucleated RBCs # 0.0 /100WBC 04/17/23 15:15 Sodium 137 mmol/L (136-145) 04/17/23 15:15 Potassium 3.8 mmol/L (3.5-5.1) 04/17/23 15:15 Chloride 101 mmol/L (98-107) 04/17/23 15:15 Carbon Dioxide 25 mmol/L (22-29) 04/17/23 15:15 Anion Gap 14.8 (5-19) 04/17/23 15:15 BUN 29 mg/dL (8-23) H 04/17/23 15:15 Creatinine 1.9 mg/dL (0.7-1.2) H 04/17/23 15:15 GFR Calculation Not Reportable 04/17/23 15:15 Glucose 130 mg/dL (65-115) H 04/17/23 15:15 Calculated Osmolality 292 mOsm/kg (285-295) 04/17/23 15:15 Lactic Acid 1.6 mmol/L (0.5-2.2) 04/17/23 15:15 Calcium 8.5 mg/dL (8.5-10.5) 04/17/23 15:15 Total Bilirubin 0.6 mg/dL (0.15-1.2) 04/17/23 15:15 AST 15 U/L (0-40) 04/17/23 15:15 ALT 12 U/L (0-41) 04/17/23 15:15 Alkaline Phosphatase 65 U/L (40-130) 04/17/23 15:15 Troponin T Baseline 20 ng/L (0-15) H 04/17/23 15:15 Troponin T 120 Minute 17.77 ng/L (0-15) H 04/17/23 17:15 Delta Troponin T -2.23 ABS# (0-10) L 04/17/23 17:15 Total Protein 5.8 g/dL (6.6-8.7) L 04/17/23 15:15 Albumin 4.1 g/dL (3.5-5.2) 04/17/23 15:15 Globulin 1.7 g/dL (1.3-4.6) 04/17/23 15:15 Urine Color Carrie (Yellow) 04/17/23 16:17 Urine Appearance Cloudy (CLEAR) A 04/17/23 16:17 Urine pH 5 (5-7) 04/17/23 16:17 Ur Specific [place] 1.020 (1.005-1.030) 04/17/23 16:17 Urine Protein 1+ (Negative) H 04/17/23 16:17 Urine Glucose (UA) Norm (Normal) 04/17/23 16:17 Urine Ketones Negative (Negative) 04/17/23 16:17 Urine Blood 3+ (Negative) H 04/17/23 16:17 Urine Nitrate Negative (Negative) 04/17/23 16:17 Urine Bilirubin Neg (Negative) 04/17/23 16:17 Urine Urobilinogen Norm mg/dL (Negative) 04/17/23 16:17 Ur Leukocyte Esterase Negative (Negative) 04/17/23 16:17 Urine RBC Too numerous to cnt /hpf (0-2) H 04/17/23 16:17 Urine WBC 15-25 /hpf (0-5) H 04/17/23 16:17 Ur Squamous Epith Cells 0-4 /hpf (0-5) H 04/17/23 16:17 Amorphous Sediment Not Reportable 04/17/23 16:17 Urine Bacteria Trace /hpf (NONE) 04/17/23 16:17 Urine Mucus 2+ /hpf 04/17/23 16:17 All radiology interpretation(s) finalized by discharge Discharge Plan Discharge Patient Disposition: Home Clinical Impression: Acute hypotension, Dizziness Condition: Stable Prescriptions: No Action aspirin 81 mg tablet,delayed release (DR/EC) 81 mg PO QAM diphenhydramine HCl [Allergy (diphenhydramine)] 25 mg capsule 25 mg PO TID PRN (Reason: Allergic Symptoms) oxycodone-acetaminophen 10-325 mg tablet 1 tab PO Q8H PRN (Reason: pain) 30 Days Qty: 75 0RF Rx Instructions: Do not fill until 04/01/2023 oxycodone-acetaminophen 10-325 mg tablet 1 tab PO Q8H PRN (Reason: pain) 30 Days Qty: 75 0RF Rx Instructions: Do not fill until 04/30/2023 sildenafil (pulm.hypertension) 20 mg tablet See Rx Instructions PO .COMPLEX Qty: 30 1RF Rx Instructions: 1-5 PO TABS ONE HOUR PRIOR TO SEXUAL ACTIVITY - TAKE ON AN EMPTY STOMACH olopatadine 0.2 % drops 1 drp ophthalmic (eye) DAILY PRN (Reason: itching) Qty: 2.5 0RF (DME) cpap and supplies See Rx Instructions .Route .MEDSUPPLY Qty: 1 0RF Rx Instructions: As directed tamsulosin 0.4 mg capsule 0.4 mg PO DAILY 90 Days Qty: 90 3RF doxazosin 4 mg tablet 4 mg PO BID Qty: 180 3RF calcitriol 0.25 mcg capsule 0.25 mcg PO EVERY OTHER DAY metoprolol tartrate 100 mg tablet 100 mg PO BID hydralazine 100 mg tablet 100 mg PO TID amlodipine 5 mg tablet 10 mg PO QAM Patient Comments: pt states that he is taking 2.5 tabs qhs allopurinol 300 mg tablet 300 mg PO DAILY PRN (Reason: GOUT) furosemide 20 mg tablet 20 mg PO QAM colchicine (gout) 0.6 mg tablet See Rx Instructions PO DAILY PRN (Reason: GOUT) Rx Instructions: take 1.2 mg (2 tablets) by mouth once, then 0.6 mg (1 tablet) by mouth 1 hour later fluticasone propionate 50 mcg/actuation spray,suspension 1 spray INTRANASAL BID PRN (Reason: Allergic Symptoms) montelukast 10 mg tablet 10 mg PO QAM ketoconazole 2 % shampoo See Rx Instructions .ROUTE .COMPLEX Rx Instructions: APPLY 10-15 MINUTES BEFORE SHOWER, AND ONCE YOU GET INTO THE SHOWER YOU CAN WASH THE SHAMPOO OFF. mycophenolate mofetil 500 mg tablet 1,000 mg PO BID nystatin 100,000 unit/gram powder See Rx Instructions .ROUTE .COMPLEX Rx Instructions: APPLY TO GROIN AREA NEEDED hydrocortisone 2.5 % ointment See Rx Instructions .ROUTE .COMPLEX Rx Instructions: topically ;APPLY TWICE DAILY TO FLAKY RASH ON FACE. MIX WITH KETOCONAZOLE. Discharge Orders: Discharge ED (Routine); Ordered 04/17/23 Ordered By: Cami Santana Referrals: Malini Garcia DO [Primary Care Provider] - Discharge Diet: Usual diet Discharge Activity: Increase activity as tolerated Patient Instructions: Hypotension (ED), Syncope in Older Adults (ED) Activity Restrictions/Additional Instructions: Evaluation today was able to rule out any concerns for heart issues resulting in your symptoms today. It is possible that residual effects from your recent lithotripsy caused your symptoms today as you have continued to be compliant with your blood pressure medications. These altogether could have caused acute episodes of low blood pressure resulting in dizziness and sensation of passing out. We do recommend reaching out to your primary care doctor who prescribes your blood pressure medicine as it may require changes in your blood pressure regimen. Continue to monitor your blood pressure at home multiple times throughout the day and keep a log of both your pressures and your heart rate. This can help your primary care doctor with determining whether this is an acute effect due to recent procedure or, if this is a more consistent issue requiring more definitive changes in your medication regimen. If you again develop dizziness with passing out, develop severe headache, develop slurred speech, develop chest pain, develop one-sided facial weakness/drooping or one-sided body weakness/numbness you need to be seen and reevaluated back in the emergency department. Sign Out Sign Out Data: Patient Sign Out occurred on 04/17/23 at 17:04. Patient's care was discussed, and care was transferred from to CRISTOFER Hirsch. Coding Level of Care Code ED Civil Engineering Technician for Kristen Liang
[2023-04-17 15:30] LABS: Basophils % 0.4 %; Eosinophils # 0.2 10^3/uL (0.0-0.8); Eosinophils % 2.3 %; Hematocrit 34.4 % (37-53); Lymphocytes # 0.8 10^3/uL (0.8-4.8); Mean Corpuscular Hemoglobin 32.4 pg (27-33); Mean Corpuscular Volume 95.3 fl (82-101); Mean Platelet Volume 10.1 fL (7.4-10.4); Monocytes # 0.7 10^3/uL (0.2-0.9); Monocytes % 10.3 %; Neutrophils # 5.28 10^3/uL (1.8-7.7); Neutrophils % 75.6 %; Nucleated Red Blood Cells % 0 %; Platelet Count 139 10^3/cmm (157-399); Red Blood Count 3.61 10^6/uL (3.85-5.65); Red Cell Distribution Width 12.5 % (12.1-15.1); White Blood Count 6.99 10^3/uL (3.29-11.43)
[2023-04-17] MEDS: sodium chloride 0.9% 1,000 ML 999 ML IV (15:37)
[2023-04-17 15:50] LABS: Troponin(5th) Baseline 20 ng/L (0-15)
[2023-04-17 15:51] LABS: Alanine Aminotransferase 12 U/L (0-41); Albumin Level 4.1 g/dL (3.5-5.2); Alkaline Phosphatase 65 U/L (40-130); Anion Gap 14.8 (5-19); Aspartate Amino Transferase 15 U/L (0-40); Blood Urea Nitrogen 29 mg/dL (8-23); Calcium 8.5 mg/dL (8.5-10.5); Carbon Dioxide 25 mmol/L (22-29); Chloride 101 mmol/L (98-107); Globulin 1.7 g/dL (1.3-4.6); Glucose 130 mg/dL (65-115); Osmolality Calculated 292 mOsm/kg (285-295); Potassium 3.8 mmol/L (3.5-5.1); Sodium 137 mmol/L (136-145); Total Bilirubin 0.6 mg/dL (0.15-1.2); Total Protein 5.8 g/dL (6.6-8.7)
[2023-04-17 15:52] LABS: Lactic Sepsis W/Reflex 1.6 mmol/L (0.5-2.2)
[2023-04-17 16:10] VITALS: BP 114/56; PULSE 58; RESP 16; O2SAT 98
[2023-04-17 16:29] LABS: Add Urine Microscopic? YES; Bilirubin Urine Neg (Negative); Blood Urine 3+ (Negative); Glucose Urine UA Norm (Normal); Ketones Urine Negative (Negative); Leukocyte Esterase Urine Negative (Negative); Nitrate Urine Negative (Negative); Protein Urine 1+ (Negative); Urine Appearance Cloudy (CLEAR); Urine Color Amber (Yellow); Urobilinogen Urine Norm (Negative); pH Urine 5 (5-7)
[2023-04-17 16:41] LABS: RBC Urine TOO NUMEROUS TO CNT /hpf (0-2)
--- NOTE | 2023-04-17 16:41 | CTR_ITS ---
PROCEDURE INFORMATION: Exam: CT Abdomen And Pelvis Without Contrast Exam date and time: 04/17/2023 5:06 PM Age: 73 years old Clinical indication: Other: Hematuria; Prior surgery; Surgery date: Post-operative (0-2 days); Surgery type: Lithrotripsy x 2 days ago; Additional info: Recent lithotripsy, low BP, elevated bun/cr TECHNIQUE: Imaging protocol: Computed tomography of the abdomen and pelvis without contrast. Radiation optimization: All CT scans at this facility use at least one of these dose optimization techniques: automated exposure control; mA and/or kV adjustment per patient size (includes targeted exams where dose is matched to clinical indication); or iterative reconstruction. REPORTING DATA: Count of CT and Cardiac NM exams in prior 12 months: This patient has received 3 known CTs and 0 known cardiac nuclear medicine studies in the 12 months prior to the current study. COMPARISON: CT abdomen pelvis wo/w [id number] 02/06/2023 10:15 AM RADIATION DOSE METRICS: Total DLP (mGy-cm): 704.15 FINDINGS: Lungs: The lung bases appear unremarkable. Diaphragm: There is a small hiatal hernia present. Liver: Liver demonstrates 2, less than 10 mm low-density lesions, likely simple appearing cysts. No acute hepatic abnormality noted. Gallbladder and bile ducts: The gallbladder is surgically absent. Pancreas: The pancreas is normal in appearance. No pancreatic duct dilatation. Spleen: Unremarkable. No splenomegaly. Adrenal glands: The adrenal glands appear within normal limits. Kidneys and ureters: Bilateral nephrolithiasis noted. The largest visualized calculus seen on the right side measuring 6 mm in diameter. Multiple smaller nonobstructing calculi are seen in the left kidney. Bilateral simple appearing renal cysts are noted, measuring up to 4.5 cm. No solid renal mass. No hydronephrosis. Normal ureters. No obstructive uropathy. Stomach and bowel: The small bowel is unremarkable as demonstrated. Diverticulosis of the colon. No evidence of acute diverticulitis. Appendix: No evidence of appendicitis. Intraperitoneal space: No pneumoperitoneum. No significant fluid collection. Vasculature: Atherosclerosis of the aorta. No abdominal aortic aneurysm. Lymph nodes: No pathologically enlarged lymph nodes. Urinary bladder: Urinary bladder demonstrates 3 or 4 tiny calculi in the dependent portion. Wall of the urinary bladder is mildly thickened, which may be related to underdistention. Reproductive: Prostate gland is mildly enlarged. The prostate gland measures 4.6 cm AP x 4.6 cm transverse by 4.9 cm craniocaudal. Bones/joints: Degenerative spine changes are noted. Soft tissues: Small left inguinal hernia noted, containing only fat. CT/CT kidney stone [id number] IMPRESSION: 1. Bilateral nephrolithiasis, as above. No hydronephrosis. No obstructive uropathy. 2. Urinary bladder demonstrates 3 or 4 tiny calculi in the dependent portion. The wall of the urinary bladder is mildly thickened, which may be related to underdistention. 3. Prostate gland is mildly enlarged. 4. Diverticulosis of the colon. No evidence of acute diverticulitis. 5. Small left inguinal hernia noted, containing only fat. COMMENTS: Consistent with the [employer] [place] [employer]'s Incidental Findings Committee white paper (J Am Silvino Radiol 2018): Any incidental renal lesion less than 1 cm or classified as too small to characterize, or any incidental cystic renal lesion characterized as simple-appearing, is likely benign. No follow-up imaging is recommended for these lesions per consensus recommendations based on imaging criteria.
[2023-04-17 16:42] LABS: Add Urine Culture? Yes; Bacteria Urine TRACE /hpf; Mucus Urine 2+ /hpf; Squamous Epithelial Cell Urine 0-4 /hpf (0-5); WBC Urine 15-25 /hpf (0-5)
[2023-04-17 16:52] VITALS: BP 120/57; PULSE 54; RESP 13; O2SAT 98
--- NOTE | 2023-04-17 17:03 | ECG_ITS ---
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 Measurements Intervals [place] Rate: 61 P: 72 HI: 153 QRS: 61 QRSD: 102 T: 58 QT: 446 QTc: 450 Interpretive Statements SINUS RHYTHM Non specific ST ELEVATION in inferior lead Compared to ECG 04/17/2023 15:01:29 ST (T wave) deviation now present Sinus bradycardia no longer present Intraventricular conduction delay no longer present Electronically Signed On 04-18-2023 14:22:09 CDT by Vonda Espinoza M.D. [id number]
--- NOTE | 2023-04-17 17:20 | ECG_ITS ---
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 Measurements Intervals [place] Rate: 59 P: 72 MO: 156 QRS: 61 QRSD: 94 T: 58 QT: 443 QTc: 441 Interpretive Statements SINUS BRADYCARDIA Compared to ECG 04/17/2023 17:15:41 Sinus rhythm no longer present ST (T wave) deviation no longer present Myocardial infarct finding no longer present Electronically Signed On 04-18-2023 5:23:50 CDT by Vonda Espinoza M.D. [id number]
[2023-04-17 17:44] LABS: Troponin 5 2HR 17.77 ng/L (0-15)
[2023-04-17 17:45] LABS: Troponin 5 2HR Delta -2.23 ABS# (0-10)
== END 2023-04-17 18:40 | disposition home or self-care (01) ==
PROVIDERS: Physician Assistant; Emergency Provider Physician Assistant; PCP Family Medicine
DX: I95.9 Hypotension, unspecified (principal); Z79.82 Long term (current) use of aspirin; N20.0 Calculus of kidney; I12.9 Hypertensive chronic kidney disease with stage 1 through stage 4 chronic kidney disease, or unspecified chronic kidney disease; N18.30 Chronic kidney disease, stage 3 unspecified
CPT/HCPCS: 71045; 74176; 80053; 81001; 83605; 84484; 85025; 87086; 93005; 96360; 99285; J7030

== ENCOUNTER → 2023-05-21 08:50 | Outpatient (BNVA) | payer MEDICARE, SELFPAY | PROVIDERS: PCP Family Medicine; Visit Provider Dermatology | DX: L23.9 Allergic contact dermatitis, unspecified cause (principal) | CPT/HCPCS: 99204 ==

== ENCOUNTER → 2023-06-24 13:39 | Outpatient (BNVA) | payer MEDICARE, SELFPAY | PROVIDERS: PCP Family Medicine; Visit Provider Dermatology | DX: L23.9 Allergic contact dermatitis, unspecified cause (principal) | CPT/HCPCS: 99214 ==

== ENCOUNTER → 2023-07-31 10:25 | Outpatient (BNVA) | payer MEDICARE, SELFPAY | PROVIDERS: PCP Family Medicine; Visit Provider Dermatology | DX: L23.9 Allergic contact dermatitis, unspecified cause (principal); L30.4 Erythema intertrigo; L57.0 Actinic keratosis | CPT/HCPCS: 17000; 99214 ==

== ENCOUNTER → 2023-09-08 12:47 | Outpatient (BNVA) | payer MEDICARE, SELFPAY | PROVIDERS: PCP Family Medicine; Visit Provider Nurse Practitioner Family | DX: L23.9 Allergic contact dermatitis, unspecified cause (principal); L30.4 Erythema intertrigo; L57.0 Actinic keratosis; L21.8 Other seborrheic dermatitis | CPT/HCPCS: 17000; 99214 ==

== ENCOUNTER → 2023-10-30 10:51 | Outpatient (BNVA) | payer MEDICARE, SELFPAY | PROVIDERS: PCP Family Medicine; Visit Provider Dermatology | DX: L23.9 Allergic contact dermatitis, unspecified cause (principal); L30.4 Erythema intertrigo; L21.8 Other seborrheic dermatitis | CPT/HCPCS: 99214 ==

== ENCOUNTER → 2023-12-23 12:06 | Outpatient (BNVA) | payer MEDICARE, SELFPAY | PROVIDERS: PCP Family Medicine; Visit Provider Registered Nurse Neonatal Intensive Care | DX: M25.562 Pain in left knee (principal) | CPT/HCPCS: 73562 ==

== ENCOUNTER → 2023-12-24 14:19 | Outpatient (BNVA) | payer MEDICARE, SELFPAY | PROVIDERS: PCP Family Medicine; Visit Provider Nurse Practitioner Family | DX: L23.9 Allergic contact dermatitis, unspecified cause (principal); L21.8 Other seborrheic dermatitis; S80.861A Insect bite (nonvenomous), right lower leg, initial encounter; S80.862A Insect bite (nonvenomous), left lower leg, initial encounter; L30.4 Erythema intertrigo; X58.XXXA Exposure to other specified factors, initial encounter | CPT/HCPCS: 99214 ==

== ENCOUNTER → 2024-02-12 09:50 | Outpatient (BNVA) | payer MEDICARE, SELFPAY | PROVIDERS: PCP Family Medicine; Visit Provider Nurse Practitioner Family | DX: L23.9 Allergic contact dermatitis, unspecified cause (principal) | CPT/HCPCS: 99214 ==

== ENCOUNTER → 2024-03-01 09:22 | Outpatient (BNVA) | payer MEDICARE, SELFPAY | PROVIDERS: PCP Family Medicine; Visit Provider Nurse Practitioner Family | DX: L30.9 Dermatitis, unspecified (principal); L23.9 Allergic contact dermatitis, unspecified cause; L81.4 Other melanin hyperpigmentation | CPT/HCPCS: 11102; 99213 ==

== ENCOUNTER → 2024-03-11 08:23 | Outpatient (BNVA) | payer MEDICARE, SELFPAY | PROVIDERS: PCP Family Medicine; Visit Provider Nurse Practitioner Family | DX: L02.221 Furuncle of abdominal wall (principal) | CPT/HCPCS: 99214 ==

== ENCOUNTER → 2024-04-08 15:20 | Outpatient (BNVA) | payer MEDICARE, SELFPAY | PROVIDERS: PCP Family Medicine; Visit Provider Dermatology | DX: L24.2 Irritant contact dermatitis due to solvents (principal); L81.7 Pigmented purpuric dermatosis | CPT/HCPCS: 99214 ==

== ENCOUNTER → 2024-06-03 13:14 | Outpatient (BNVA) | payer MEDICARE, SELFPAY | PROVIDERS: PCP Family Medicine; Visit Provider Dermatology | DX: L24.2 Irritant contact dermatitis due to solvents (principal) | CPT/HCPCS: 99214 ==

== ENCOUNTER → 2024-09-28 12:12 | Outpatient (BNVA) | payer MEDICARE, SELFPAY | PROVIDERS: PCP Family Medicine; Visit Provider Family Medicine | DX: R55 Syncope and collapse (principal) | CPT/HCPCS: 80053; 85025 ==

== ENCOUNTER 2024-12-13 16:11 | Emergency (ER) | payer MEDICARE, SELFPAY ==
[2024-12-13] VITALS (7 sets, daily range): BP systolic 122–170; BP diastolic 61–90; PULSE 60–71; RESP 16–18; TEMP 37; O2SAT 94–96; BMI 22.9
--- NOTE | 2024-12-13 16:39 | XRR_ITS ---
PROCEDURE INFORMATION: Exam: XR Chest Exam date and time: 12/13/2024 5:55 PM Age: 74 years old Clinical indication: Other: Weakness TECHNIQUE: Imaging protocol: Radiologic exam of the chest. Views: 1 view. COMPARISON: CR XR chest 1V portable [id number] 04/17/2023 3:02 PM FINDINGS: Lungs: Unremarkable. No consolidation or mass. Pleural spaces: Unremarkable. No pleural effusion. No pneumothorax. Heart/Mediastinum: Unremarkable. No cardiomegaly. Bones/joints: Unremarkable. XR/XR chest 1V portable [id number] IMPRESSION: No acute findings.
[2024-12-13 17:44] LABS: Basophils % 0.5 %; Eosinophils # 0.1 10^3/uL (0.0-0.8); Eosinophils % 2.3 %; Hematocrit 36.9 % (37-53); Lymphocytes # 0.9 10^3/uL (0.8-4.8); Lymphocytes % 14.5 %; Mean Corpuscular Hemoglobin 31.3 pg (27-33); Mean Corpuscular Volume 97.9 fl (82-101); Mean Platelet Volume 10.5 fL (7.4-10.4); Monocytes # 0.5 10^3/uL (0.2-0.9); Monocytes % 8.6 %; Neutrophils # 4.53 10^3/uL (1.8-7.7); Neutrophils % 73.9 %; Nucleated Red Blood Cells % 0 %; Platelet Count 160 10^3/cmm (157-399); Red Blood Count 3.77 10^6/uL (3.85-5.65); Red Cell Distribution Width 12.3 % (12.1-15.1); White Blood Count 6.13 10^3/uL (3.29-11.43)
--- NOTE | 2024-12-13 17:50 | ECG_ITS ---
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 Measurements Intervals [place] Rate: 55 P: 63 NC: 163 QRS: 65 QRSD: 106 T: 48 QT: 429 QTc: 411 Interpretive Statements SINUS BRADYCARDIA Compared to ECG 04/17/2023 17:20:38 No significant changes Electronically Signed On 12-14-2024 11:35:53 CDT by Gray Mena M.D. [id number]
--- NOTE | 2024-12-13 17:52 | ED_ITS ---
HPI - General Adult 2 General: Chief complaint: General Medical Stated complaint: low BP, dizzy Time Seen by Provider: 12/13/24 17:32 Source: patient Mode of arrival: ambulatory Limitations: no limitations History of Present Illness: Patient is a 74-year-old male who presents to ED today after having one documented episode of hypotension at home. He states he routinely checks his blood pressure multiple times a day. Throughout the day it was running normal around 120s/80s but states he had one reading of 90s/50s (asymptomatic at the time) that concerned him so he came in. He states shortly after his low reading of 90s/50s it then shot up to 140s/90s. Upon arrival here he is 128/67. During my examination he is 131/74. He tells me he has felt sick for approximately 3 days now with bodyaches. No documented fevers. He is not having any specific pain anywhere-just diffuse aches. No sick contacts. He is not having any vomiting or diarrhea. No chest pain or abdominal pain. Onset (ago): hour(s) Severity: mild Relieving factors: none Exacerbating factors: none Associated symptoms: Reports malaise and other (body aches); Deny chest pain, confusion, dyspnea, headache(s), nausea, rash, palpitations, syncope or vomiting Treatments prior to arrival: none Related Data Home Medications ?Medication ?Instructions ?Recorded ?Confirmed aspirin 81 mg tablet,delayed 81 mg PO QAM 07/20/19 release calcitriol 0.25 mcg capsule 0.25 mcg PO EVERY OTHER DA Y 03/08/22 11/10/24 metoprolol tartrate 100 mg tablet 100 mg PO BID 11/10/24 amlodipine 5 mg tablet 10 mg PO QAM 04/17/23 hydralazine 100 mg tablet 100 mg PO TID 04/17/2311/10 ketoconazole 2 % shampoo See Rx Instructions .Route . COMPLEX 04/17/23 11/10/24 Previous Rx's ?Medication ?Instructions ?Recorded cpap and supplies #1 ea 06/15/21 doxazosin 4 mg tablet 4 mg PO BID #180 tabs triamcinolone acetonide 0.5 % 1 applic topical DAILY # 15 grams 03/23/24 topical cream oxycodone-acetaminophen 10 mg-325 1 tab PO Q8H PRN candis n 30 days #75 09/16/25 mg tablet tabs oxycodone-acetaminophen 10 mg-325 1 tab PO Q8H PRN candis n 30 days #75 09/23/25 mg tablet tabs oxycodone-acetaminophen 10 mg-325 1 tab PO Q8H PRN candis n 30 days #75 09/23/25 mg tablet tabs prednisone 20 mg tablet 20 mg PO BID 5 days #10 tabs 10/07/24 Allergies Allergy/AdvReac Type Severity Reaction Status Date / Time hydrocodone (From Vicodin) Allergy itch Verified 11/10/24 15:26 Review of Systems 2 Const: Reports: body aches and malaise; Denies: fever(s), chills, change in appetite, fatigue or night sweats Eyes: Denies: change in vision or blurry vision Card: Denies: chest pain, palpitations, lightheadedness, syncope or pre- syncope Resp: Denies: dyspnea GI: Denies: abdominal pain, nausea, vomiting or diarrhea : Denies: flank pain or dysuria Musc: Denies: neck pain, back pain, extremity pain, extremity swelling, joint pain, joint swelling or joint redness Skin/Breast: Denies: rash Neuro: Denies: headache(s), numbness in extremities, weakness in extremities, sensory changes, difficulty walking, dizziness, confusion or behavioral changes PFSH ED 2 PFSH: Medical History Encounter for chronic pain management CKD (chronic kidney disease) stage 3, GFR 30-59 ml/min Carotid bruit FERNANDA (obstructive sleep apnea) 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 Hypertension BPH (benign prostatic hyperplasia) Chronic low back pain Surgical History H/O hernia repair inguinal Right History of neck surgery History of cholecystectomy History of back surgery Family History Mother CAD (coronary artery disease) Dementia Stroke Other Hypertension Denies family history of Diabetes Clotting disorder Chronic kidney disease (CKD) Suicide Anesthesia complication Bleeding disorder Lung disease Cancer Social History (Reviewed 12/13/24 @ 18:03 by SANTOS Doe Smoking and tobacco/nicotine status: never used tobacco/nicotine Alcohol intake: never Substance/Drug Use: never Marital status: Number of children: 2 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 Physical Exam 2 Const: COMMON NORMALS: no acute distress, average body habitus, patient oriented x3, no limitations, healthy appearing, alert and well nourished G ENERAL APPEARANCE: cooperative ORIENTATION/CONSCIOUSNESS: Yes awake, Yes oriented to person, Yes oriented to place and Yes oriented to time HENMT: COMMON NORMALS: normocephalic and atraumatic HEAD & SCALP: normal to inspection, normocephalic and atraumatic FACE & SINUS: normal facial exam and face symmetric THROAT: posterior oropharynx normal and tonsils normal Eye: GENERAL EYE: appearance normal, both eyes and all related structures Neck/C-Spine: COMMON NORMALS: full ROM, no lymphadenopathy, supple and no meningeal signs Chest: COMMONS NORMALS: normal inspection of the chest Resp: COMMON NORMALS: normal respiratory effort and clear to auscultation bilaterally AUSCULTATION: clear to auscultation bilaterally Cardio: COMMON NORMALS: regular rate and regular rhythm RATE: regular rate RHYTHM: regular rhythm GI: COMMON NORMALS: Normal to inspection, nondistended, normoactive bowel sounds present, Soft to palpation, non-tender, No hepatosplenomegaly present and no masses PALPATION: Yes Soft to palpation and Yes No hepatosplenomegaly present : COMMON NORMALS: Yes no CVA tenderness BLADDER/KIDNEY EXAM: Yes no CVA tenderness Back/Pelvis: COMMON NORMALS: no CVA tenderness and thoracic and lumbar spine normal to inspection Extremity: COMMON NORMALS: normal to inspection, capillary refill normal, no clubbing, cyanosis or edema, no calf tenderness and no pedal edema GENERAL: Y es normal exam except as noted Neuro: SHARON COMA SCALE: document GCS findings Sharon coma scale eye opening: Spontaneous [place] coma scale verbal response: Orientated [place] coma scale motor response: Obey commands Sharon coma scale total score: 15 COMMON NORMALS: patient oriented x3, moves all extremities, no focal motor deficits, no sensory deficits noted and gait normal SENSORIUM/ORIENTATION: Yes alert, Yes oriented to person, Yes oriented to place and Yes oriented to time MENINGEAL SIGNS: Yes no meningeal signs Skin: COMMON NORMALS: no rashes or lesions noted GENERAL SKIN EXAM: no rashes or lesions noted Course 2 Vital Signs: Vital signs: Vital Signs Temperature 98.6 F 12/13/24 16:16 Pulse Rate 61 12/13/24 20:00 Respiratory Rate 18 12/13/24 19:57 Blood Pressure 170/90 12/13/24 20:00 Pulse Oximetry 95 12/13/24 20:00 Oxygen Delivery Me thod Room Air 12/13/24 20:00 MDM - General Adult Medical Decision Making Patient is a nice 74-year-old male here after one reading of low blood pressure at home. He has had further blood pressure readings throughout the day which have been normal. His blood pressures have been completely normal throughout his emergency department stay. He does report some generalized fatigue and bodyaches. No other symptoms. His blood work overall looks okay. He does have some minor elevations to his kidney functions. His BUN seems to be at baseline. Creatinine is slightly above normal at 2.6-he was given fluids prior to discharge. He states his primary care provider is keeping an eye on his kidneys. He will be given fluids here. UA and CXR are unremarkable. His EKG is normal. Recommend he follow-up with primary care later this week/early next week for reevaluation. Return to ED precautions discussed. Medical Records I reviewed the patient's medical records. Lab Data I reviewed the patient's lab results. 12/13/24 17:23 12/13/24 17:23 Radiology Impressions Chest X-Ray 12/13/24 16:39 IMPRESSION: No acute findings. Laboratory Results WBC 6.13 10^3/uL (3.29-11.43) 12/13/24 17:23 RBC 3.77 10^6/uL (3.85-5.65) L 12/13/24 17:23 Hgb 11.80 g/dL (11.27-16.99) 12/13/24 17:23 Hct 36.9 % (37-53) L 12/13/24 17:23 MCV 97.9 fl (82-101) 12/13/24 17:23 MCH 31.3 pg (27-33) 12/13/24 17:23 MCHC 32.0 g/dL (30-55) 12/13/24 17:23 RDW 12.3 % (12.1-15.1) 12/13/24 17:23 Plt Count 160 10^3/cmm (157-399) 12/13/24 17:23 MPV 10.5 fL (7.4-10.4) H 12/13/24 17:23 Neut % (Auto) 73.9 % 12/13/24 17:23 Lymph % (Auto) 14.5 % 12/13/24 17:23 [place] % (Auto) 8.6 % 12/13/24 17:23 Eos % (Auto) 2.3 % 12/13/24 17:23 Baso % (Auto) 0.5 % 12/13/24 17:23 Neut # (Auto) 4.53 10^3/uL (1.8-7.7) 12/13/24 17:23 Lymph # (Auto) 0.9 10^3/uL (0.8-4.8) 12/13/24 17:23 [place] # (Auto) 0.5 10^3/uL (0.2-0.9) 12/13/24 17:23 Eos # (Auto) 0.1 10^3/uL (0.0-0.8) 12/13/24 17:23 Baso # (Auto) 0.0 10^3/uL (0.0-0.1) 12/13/24 17:23 Nucleated RBC % (auto) 0 % 12/13/24 17:23 Nucleated RBCs # 0.0 /100WBC 12/13/24 17:23 Sodium 140 mmol/L (136-145) 12/13/24 17:23 Potassium 4.3 mmol/L (3.5-5.1) 12/13/24 17:23 Chloride 105 mmol/L (98-107) 12/13/24 17:23 Carbon Dioxide 21 mmol/L (22-29) L 12/13/24 17:23 Anion Gap 18.3 (5-19) 12/13/24 17:23 BUN 30 mg/dL (8-23) H 12/13/24 17:23 Creatinine 2.6 mg/dL (0.7-1.2) H 12/13/24 17:23 GFR Calculation Not Reportable 12/13/24 17:23 Glucose 111 mg/dL (65-115) 12/13/24 17:23 Calculated Osmolality 297 mOsm/kg (285-295) H 12/13/24 17:23 Calcium 9.3 mg/dL (8.5-10.5) 12/13/24 17:23 Total Bilirubin 0.5 mg/dL (0.15-1.2) 12/13/24 17:23 AST 23 U/L (0-40) 12/13/24 17:23 ALT 15 U/L (0-41) 12/13/24 17:23 Alkaline Phosphatase 80 U/L (40-130) 12/13/24 17:23 Total Protein 7.0 g/dL (6.6-8.7) 12/13/24 17:23 Albumin 4.5 g/dL (3.5-5.2) 12/13/24 17:23 Globulin 2.5 g/dL (1.3-4.6) 12/13/24 17:23 Urine Color Yellow (Yellow) 12/13/24 18:53 Urine Appearance Clear (CLEAR) 12/13/24 18:53 Urine pH 5.5 (5-7) 12/13/24 18:53 Ur Specific [place] 1.017 (1.005-1.030) 12/13/24 18:53 Urine Protein 1+ (Negative) A 12/13/24 18:53 Urine Glucose (UA) Negative (Normal) 12/13/24 18:53 Urine Ketones Trace (Negative) 12/13/24 18:53 Urine Blood Negative (Negative) 12/13/24 18:53 Urine Nitrate Negative (Negative) 12/13/24 18:53 Urine Bilirubin Negative (Negative) 12/13/24 18:53 Urine Urobilinogen 1.0 mg/dL (Negative) 12/13/24 18:53 Ur Leukocyte Esterase Negative (Negative) 12/13/24 18:53 Urine RBC 0-2 /hpf (0-2) 12/13/24 18:53 Urine WBC 0-5 /hpf (0-5) 12/13/24 18:53 Ur Squamous Epith Cells 0-5 /hpf (0-5) 12/13/24 18:53 Amorphous Sediment Not Reportable 12/13/24 18:53 Urine Bacteria None seen /hpf (NONE) 12/13/24 18:53 Hyaline Casts 16.12 /lpf 12/13/24 18:53 All radiology interpretation(s) finalized by discharge Discharge Plan Discharge Patient Disposition: Home Clinical Impression: Nonspecific low blood pressure reading CKD (chronic kidney disease) Qualifiers: Chronic kidney disease stage: unspecified stage Qualified Code(s): N18.9 - Chronic kidney disease, unspecified Condition: Stable Prescriptions: No Action aspirin 81 mg tablet,delayed release (DR/EC) 81 mg PO QAM triamcinolone acetonide 0.5 % cream 1 applic topical DAILY Qty: 15 0RF oxycodone-acetaminophen 10-325 mg tablet 1 tab PO Q8H PRN (Reason: pain) 30 Days Qty: 75 0RF Rx Instructions: Do not fill until 10/23/2024 oxycodone-acetaminophen 10-325 mg tablet 1 tab PO Q8H PRN (Reason: pain) 30 Days Qty: 75 0RF Rx Instructions: Do not fill until 11/21/2024 prednisone 20 mg tablet 20 mg PO BID 5 Days Qty: 10 0RF (DME) cpap and supplies See Rx Instructions .Route .MEDSUPPLY Qty: 1 0RF Rx Instructions: As directed doxazosin 4 mg tablet 4 mg PO BID Qty: 180 3RF oxycodone-acetaminophen 10-325 mg tablet 1 tab PO Q8H PRN (Reason: pain) 30 Days Qty: 75 0RF calcitriol 0.25 mcg capsule 0.25 mcg PO EVERY OTHER DAY metoprolol tartrate 100 mg tablet 100 mg PO BID hydralazine 100 mg tablet 100 mg PO TID amlodipine 5 mg tablet 10 mg PO QAM Patient Comments: pt states that he is taking 2.5 tabs qhs ketoconazole 2 % shampoo See Rx Instructions .ROUTE .COMPLEX Rx Instructions: APPLY 10-15 MINUTES BEFORE SHOWER, AND ONCE YOU GET INTO THE SHOWER YOU CAN WASH THE SHAMPOO OFF. Discharge Orders: Discharge ED (Routine); Ordered 12/13/24 Ordered By: Jolanta Mireles Referrals: Malini Garcia DO [Primary Care Provider, Family Practice] Activity Restrictions/Additional Instructions: As we discussed, please follow-up with primary care later this week/early next week for re-evaluation. They may repeat chemistry to recheck your kidney labs. You may return to the emergency department at anytime for any further concerns you may have. 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
[2024-12-13 18:14] LABS: Alanine Aminotransferase 15 U/L (0-41); Albumin Level 4.5 g/dL (3.5-5.2); Alkaline Phosphatase 80 U/L (40-130); Blood Urea Nitrogen 30 mg/dL (8-23); Calcium 9.3 mg/dL (8.5-10.5); Carbon Dioxide 21 mmol/L (22-29); Chloride 105 mmol/L (98-107); Creatinine Clr Calc Pharmacy 24.8991; Globulin 2.5 g/dL (1.3-4.6); Glucose 111 mg/dL (65-115); Osmolality Calculated 297 mOsm/kg (285-295); Sodium 140 mmol/L (136-145); Total Bilirubin 0.5 mg/dL (0.15-1.2)
[2024-12-13 18:17] LABS: Anion Gap 18.3 (5-19); Aspartate Amino Transferase 23 U/L (0-40); Potassium 4.3 mmol/L (3.5-5.1)
[2024-12-13 19:11] LABS: Bilirubin Urine Negative (Negative); Blood Urine Negative (Negative); Glucose Urine UA Negative (Normal); Ketones Urine Trace (Negative); Leukocyte Esterase Urine Negative (Negative); Nitrate Urine Negative (Negative); Protein Urine 1+ (Negative); Specific Gravity, Urine 1.017 (1.005-1.030); Urine Appearance Clear (CLEAR); Urine Color Yellow (Yellow); pH Urine 5.5 (5-7)
[2024-12-13 19:18] LABS: Add Urine Microscopic? YES; Bacteria Urine None Seen /hpf; Hyaline Casts Urine 16.12 /lpf; RBC Urine 0-2 /hpf (0-2); Squamous Epithelial Cell Urine 0-5 /hpf (0-5); WBC Urine 0-5 /hpf (0-5)
[2024-12-13 19:34] LABS: UA Slide Review UA Slide Review Perf
[2024-12-13 19:36] LABS: Add Urine Culture? No
[2024-12-13] MEDS: sodium chloride 0.9% 1,000 ML 999 ML IV (19:57)
[2024-12-13] MEDS: oxyCODONE-APAP 10-325 mg Tablet 1 TAB PO (19:57)
== END 2024-12-13 20:29 | disposition home or self-care (01) ==
PROVIDERS: Emergency Medicine; Emergency Provider Physician Assistant; PCP Family Medicine
DX: R03.1 Nonspecific low blood-pressure reading (principal); I12.9 Hypertensive chronic kidney disease with stage 1 through stage 4 chronic kidney disease, or unspecified chronic kidney disease; N18.30 Chronic kidney disease, stage 3 unspecified; Z79.82 Long term (current) use of aspirin
CPT/HCPCS: 36415; 71045; 80053; 81001; 85025; 93005; 99285; J7030; J9999

== ENCOUNTER → 2025-01-27 13:51 | Outpatient (BNVA) | payer MEDICARE, SELFPAY | PROVIDERS: PCP Family Medicine; Visit Provider Nurse Practitioner Family | DX: L30.9 Dermatitis, unspecified (principal); L81.4 Other melanin hyperpigmentation; L57.8 Other skin changes due to chronic exposure to nonionizing radiation; D48.5 Neoplasm of uncertain behavior of skin | CPT/HCPCS: 11102; 99213 ==

== ENCOUNTER → 2025-03-25 13:45 | Outpatient (BNVA) | payer MEDICARE, SELFPAY | PROVIDERS: PCP Family Medicine; Visit Provider Nurse Practitioner Family | DX: L30.9 Dermatitis, unspecified (principal); L29.89 Other pruritus; L81.4 Other melanin hyperpigmentation; L57.8 Other skin changes due to chronic exposure to nonionizing radiation | CPT/HCPCS: 11102; 99214 ==

== ENCOUNTER → 2025-03-28 10:50 | Outpatient (BNVA) | payer MEDICARE, SELFPAY | PROVIDERS: PCP Family Medicine; Visit Provider Nurse Practitioner Family | DX: B86 Scabies (principal) | CPT/HCPCS: 99214 ==

== ENCOUNTER 2025-04-12 14:10 | Outpatient (CLI) | payer MEDICARE, SELFPAY ==
--- NOTE | 2025-04-12 14:22 | XRR_ITS ---
PROCEDURE INFORMATION: Exam: XR Abdomen Exam date and time: 04/12/2025 02:32 PM Age: 75 years old Clinical indication: Abdominal pain; Generalized; Prior surgery; Surgery date: 6+ months; Surgery type: Appendix; Additional info: Nephrolithiasis TECHNIQUE: Imaging protocol: Radiologic exam of the abdomen. Views: Frontal supine view of the abdomen. 1 View. COMPARISON: CR XR KUB [id number] 10/07/2023 11:12 AM FINDINGS: Gastrointestinal tract: Nonobstructive bowel-gas pattern. Mild stool load. Intraperitoneal space: Right upper quadrant surgical clips. Organs: No organomegaly. Vasculature: Atherosclerotic vascular disease. Bones/joints: Degenerative changes of the spine. Compression deformity of L2. Other findings: No discrete calcifications are seen over the renal silhouettes. XR/XR KUB [id number] IMPRESSION: 1. Nonobstructive bowel-gas pattern. 2. Compression deformity of L2. 3. No discrete calcifications are seen over the renal silhouettes.
== END 2025-04-12 14:11 | disposition home or self-care (01) ==
PROVIDERS: PCP Family Medicine; Visit Provider Nurse Practitioner Family
DX: N20.0 Calculus of kidney (principal)
CPT/HCPCS: 74018

== ENCOUNTER → 2025-05-03 10:48 | Outpatient (BNVA) | payer MEDICARE, SELFPAY | PROVIDERS: PCP Family Medicine; Visit Provider Family Medicine | DX: Z13.6 Encounter for screening for cardiovascular disorders (principal); R41.82 Altered mental status, unspecified; E53.8 Deficiency of other specified B group vitamins | CPT/HCPCS: 80053; 82607; 82746; 84443; 85025 ==